=== PATIENT | female | born 2000 | race Hispanic/Latino ===

== ENCOUNTER 2024-03-14 10:48 | Emergency (ER) | payer SELFPAY ==
[2024-03-14] MEDS ORDERED: ONDANSETRON 4 MG/2 ML VIAL ONE (11:43)
[2024-03-14 12:12] LABS: Absolute Basophils 0.1 K/uL (0-0.5); Absolute Lymphocytes (CBC) 1.9 K/uL (0.7-4.9); Absolute Monocytes 0.6 K/uL (0.1-1.3); Absolute Neutrophil 7.9 K/uL (1.8-8.0); Basophils % 0.5 % (0-1.3); Eosinophils % 0.3 % (0-4.4); Hematocrit 36.9 % (36.0-45.0); Hemoglobin 12.9 g/dL (12.0-15.0); Lymphocytes % 18.3 % (15.3-44.8); MCH 30.1 pg (27.0-35.0); MCHC 35.1 g/dL (32.0-36.0); MCV 85.8 fL (80-100); MPV 10.3 fL (7.6-11.3); Monocytes % 5.3 % (3.3-12.3); Neutrophils % 75.6 % (41.7-73.7); Platelets 253 thou/uL (152-406); RBC Red Blood Cell Count 4.29 M/uL (3.86-4.86); Red Cell Distribution Width 13.1 % (12.1-15.2)
[2024-03-14 12:21] LABS: Albumin 3.6 g/dL (3.4-5.0); Albumin/Globulin Ratio 0.9 (1.1-1.8); Anion Gap 9.5 mEq/L (5.0-15.0); Bilirubin Total 0.6 mg/dL (0.2-1.0); Globulin 4.2 g/dL (2.3-3.5); Potassium 3.5 mEq/L (3.5-5.1); Protein, Total 7.8 g/dL (6.4-8.2)
[2024-03-14 13:16] LABS: Specific Gravity 1.026 (1.005-1.030); Sqamous Epithelial <5 /HPF (None Seen); Urine Bacteria >50 /HPF (<20); Urine Bilirubin NEGATIVE (Negative); Urine Blood Negative (Negative); Urine Clarity Extremely Turbid (Clear); Urine Color Yellow (Yellow); Urine Culture Reflex Order NOT NEEDED; Urine Glucose NEGATIVE (Negative); Urine Ketones 4+ (Over) (Negative); Urine Micro Reflex YN NO BILL MICROSCOPIC; Urine Mucus 2+ /HPF (None Seen); Urine Nitrite 1+ (Negative); Urine Protein TRACE (Negative); Urine Urobilinogen Normal (Normal); Urine WBC <5 /HPF (<5); Urine pH 6.5 (5.0-7.0)
--- NOTE | 2024-03-14 13:27 | EDPHYS ---
Physician Documentation [facility] [place] Name: Coco Barajas Age: 23 yrs Sex: Female : 2000 Arrival Date: 03/14/2024 Time: 10:48 Bed 4 Private MD: ED Physician Karel Amin HPI: 03/14 19:19 This 23 yrs old Female presents to ER via Wheelchair with complaints of rt Vomiting - Prg 12WKS. 19:19 Patient is a G1, P0 currently at 12 weeks gestation who presents to the ED with nausea, rt vomiting, inability to take anything down by mouth since yesterday. Denies any abdominal pain. Denies other acute complaints at this time, symptoms are moderate in severity, no other aggravating or alleviating factors.. 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 - Infectious Disease History:: Denies. - Social history:: Smoking status: Patient denies any tobacco usage or history of. - Family history:: not pertinent. ROS: 19:19 Constitutional: Negative for fever, chills, and weight loss, Cardiovascular: Negative rt for chest pain, palpitations, and edema, Respiratory: Negative for shortness of breath, cough, wheezing, and pleuritic chest pain, MS/Extremity: Negative for injury and deformity, Skin: Negative for injury, rash, and discoloration, Neuro: Negative for headache, weakness, numbness, tingling, and seizure, 19:19 Abdomen/GI: Positive for nausea and vomiting, Negative for abdominal pain, Exam: 19:19 Constitutional: This is a well developed, well nourished patient who is awake, alert, rt and in no acute distress. Head/Face: Normocephalic, atraumatic. Chest/axilla: Normal chest wall appearance and motion. Nontender with no deformity. No lesions are appreciated. Cardiovascular: Regular rate and rhythm with a normal S1 and S2. No gallops, murmurs, or rubs. Normal PMI, no JVD. No pulse deficits. Respiratory: Lungs have equal breath sounds bilaterally, clear to auscultation and percussion. No rales, rhonchi or wheezes noted. No increased work of breathing, no retractions or nasal flaring. Abdomen/GI: Soft, non-tender, with normal bowel sounds. No distension or tympany. No guarding or rebound. No evidence of tenderness throughout. Skin: Warm, dry with normal turgor. Normal color with no rashes, no lesions, and no evidence of cellulitis. MS/ Extremity: Pulses equal, no cyanosis. Neurovascular intact. Full, normal range of motion. Neuro: Awake and alert, GCS 15, oriented to person, place, time, and situation. Cranial nerves II-XII grossly intact. Motor strength 5/5 in all extremities. Sensory grossly intact. Cerebellar exam normal. Normal gait. Vital Signs: 10:59 BP 99 / 60; Pulse 106; Resp 17; Temp 97.2; Pulse Ox 100% ; Pain 0/10; ll1 11:58 BP 116 / 90; Pulse 83; Resp 16 S; Pulse Ox 100% on R/A; kc6 13:10 BP 112 / 63; Pulse 75; Resp 16 S; Pulse Ox 100% on R/A; kc6 10:59 Pain Scale: Adult ll1 MDM: 11:06 Patient medically screened. rt 19:19 Differential diagnosis: Hyperemesis gravidarum, UTI. Data reviewed: vital signs, nurses rt notes, lab test result(s). Consideration of Admission/Observation Escalation of care including admission/observation considered. Patient is p.o. tolerant following treatment in the ED, electrolytes are stable, no indications for admission, patient stable for outpatient care.. I considered the following discharge prescriptions or medication management in the emergency department Medications were administered in the Emergency Department. See MAR. Counseling: I had a detailed discussion with the patient and/or guardian regarding the historical points, exam findings, and any diagnostic results supporting the discharge/admit diagnosis, lab results, the need for outpatient follow up. Response to treatment: the patient's symptoms have markedly improved after treatment. 03/14 11:12 Order name: CBC with Diff; Complete Time: 13:04 rt 03/14 11:12 Order name: CMP; Complete Time: 13:04 rt 03/14 11:12 Order name: UAM; Complete Time: 13:17 rt Administered Medications: 11:57 Drug: NS 0.9% IV 1000 ml IV at 1 bolus Per protocol; 1000 mL bolus Route: IV; Rate: 1 kc6 bolus; Site: right antecubital; 13:09 Follow up: Response: No adverse reaction; IV Status: Completed infusion; IV Intake: kc6 1000ml 11:57 Drug: Ondansetron IVP 4 mg IVP once; over 2 minutes Route: IVP; Site: right antecubital;kc6 12:34 Follow up: Response: No adverse reaction kc6 Disposition Summary: 03/14/24 13:25 Discharge Ordered Notes: Location: Home rt Problem: new rt Symptoms: have improved rt Condition: Stable rt Diagnosis - Mild hyperemesis gravidarum rt - UTI/ Urinary tract infection, site not specified rt Followup: rt - With: Private Physician - When: 2 - 3 days - Reason: Discharge Instructions: - Discharge Summary Sheet rt - Hyperemesis Gravidarum rt - and Urinary Tract Infection rt Forms: - Medication Reconciliation Form rt - Antibiotic Education rt - Prescription Opioid Use rt - Patient Portal Instructions rt - Leadership Thank You Letter rt Prescriptions: - ondansetron 4 mg Oral Tablet,disintegrating - take 1 tablet ORAL route every 6 hours as needed for nausea; 18 tablet; rt Refills: 0, Product Selection Permitted - Cephalexin 500 mg Oral capsule - take 1 capsule ORAL route every 8 hours for 7 days; 21 capsule; Refills: 0, rt Product Selection Permitted Signatures: Dispatcher [employer] Nestor Covarrubias RN RN ll1 Rebecca Austin RN RN kc6 Karel Amin MD MD rt
--- NOTE | 2024-03-14 13:27 | ER ---
Nurse's Notes [facility] [place] Name: Coco Barajas Age: 23 yrs Sex: Female : 2000 Arrival Date: 03/14/2024 Time: 10:48 Bed 4 Private MD: Diagnosis: Mild hyperemesis gravidarum;UTI/ Urinary tract infection, site not specified Presentation: 03/14 10:59 Chief complaint: Patient states: 12 weeks . N/V for 2 weeks off/on, started ll1 again this weekend. + dizzy and weak. Coronavirus screen: Client denies travel out of the [place] in the last 14 days. At this time, the client does not indicate any symptoms associated with coronavirus-19. Ebola Screen: Patient denies travel to an Ebola-affected area in the 21 days before illness onset. Initial Sepsis Screen: Does the patient meet any 2 criteria? No. Patient's initial sepsis screen is negative. Does the patient have a suspected source of infection? No. Patient's initial sepsis screen is negative. Risk Assessment: Do you want to hurt yourself or someone else? Patient reports no desire to harm self or others. Onset of symptoms was March 04, 2024. 10:59 Method Of Arrival: Wheelchair ll1 10:59 Acuity: KANDICE 3 ll1 Triage Assessment: 11:03 General: Appears uncomfortable, ill, Behavior is calm, cooperative, appropriate for ll1 age. General: Reports approximately 12 weeks . Pain: Complains of pain in head Quality of pain is described as aching. Neuro: Reports headache weakness. GI: Reports nausea, vomiting. 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 - Infectious Disease History:: Denies. - Social history:: Smoking status: Patient denies any tobacco usage or history of. - Family history:: not pertinent. Screenin:57 [facility] ED Fall Risk Assessment (Adult) History of falling in the last 3 months, kc6 including since admission No falls in past 3 months (0 pts) Confusion or Disorientation No (0 pts) Intoxicated or Sedated No (0 pts) Impaired Gait No (0 pts) Mobility Assist Device Used No (0 pt) Altered Elimination No (0 pt) Score/Fall Risk Level 0 - 2 = Low Risk. Abuse screen: Denies threats or abuse. Denies injuries from another. Nutritional screening: No deficits noted. Tuberculosis screening: No symptoms or risk factors identified. Assessment: 11:58 General: Appears in no apparent distress. comfortable, well groomed, well developed, kc6 Behavior is calm, cooperative, appropriate for age. Pain: Denies pain. Neuro: Level of Consciousness is awake, alert, obeys commands, Oriented to person, place, time, situation, Appropriate for age. Cardiovascular: Capillary refill < 3 seconds. Respiratory: Airway is patent Trachea midline Respiratory effort is even, unlabored, Respiratory pattern is regular, symmetrical. GI: Abdomen is flat, non-distended, Bowel sounds present X 4 quads. Abd is soft and non tender X 4 quads. Reports intolerance of fluids, intolerance of food, nausea, vomiting, Patient currently denies abdominal pain, diarrhea. : No signs and/or symptoms were reported regarding the genitourinary system. Denies vaginal bleeding. EENT: No signs and/or symptoms were reported regarding the EENT system. Derm: No signs and/or symptoms reported regarding the dermatologic system. Skin is intact, is healthy with good turgor, Skin is pink, warm \T\ dry. Musculoskeletal: No signs and/or symptoms reported regarding the musculoskeletal system. Circulation, motion, and sensation intact. Capillary refill < 3 seconds, Range of motion: intact in all extremities. 13:10 Reassessment: Patient appears in no apparent distress at this time. No changes from kc6 previously documented assessment. Patient and/or family updated on plan of care and expected duration. Pain level reassessed. Patient is alert, oriented x 3, equal unlabored respirations, skin warm/dry/pink. Patient states feeling better. Patient states symptoms have improved. Vital Signs: 10:59 BP 99 / 60; Pulse 106; Resp 17; Temp 97.2; Pulse Ox 100% ; Pain 0/10; ll1 11:58 BP 116 / 90; Pulse 83; Resp 16 S; Pulse Ox 100% on R/A; kc6 13:10 BP 112 / 63; Pulse 75; Resp 16 S; Pulse Ox 100% on R/A; kc6 10:59 Pain Scale: Adult ll1 ED Course: 10:52 Patient arrived in ED. mg5 11:01 Triage completed. ll1 11:03 Arm band placed on. ll1 11:05 Karel Amin MD is Attending Physician. rt 11:38 Patient placed in an exam room, on a stretcher. ll1 11:57 Patient has correct armband on for positive identification. Bed in low position. Call kc6 light in reach. Side rails up X 1. Adult w/ patient. Pulse ox on. NIBP on. Pillow given. 11:57 Inserted saline lock: 20 gauge in right antecubital area, using aseptic technique. kc6 Blood collected. 12:34 Rebecca Austin, RN is Primary Nurse. kc6 13:09 [facility] Sent. kc6 13:20 Diet: Patient given water. kc6 13:42 Provided Education on: discharge education. ap3 13:42 No provider procedures requiring assistance completed. IV discontinued, intact, ap3 bleeding controlled, No redness/swelling at site. Pressure dressing applied. Administered Medications: 11:57 Drug: NS 0.9% IV 1000 ml IV at 1 bolus Per protocol; 1000 mL bolus Route: IV; Rate: 1 kc6 bolus; Site: right antecubital; 13:09 Follow up: Response: No adverse reaction; IV Status: Completed infusion; IV Intake: kc6 1000ml 11:57 Drug: Ondansetron IVP 4 mg IVP once; over 2 minutes Route: IVP; Site: right antecubital;kc6 12:34 Follow up: Response: No adverse reaction kc6 Medication: 13:42 VIS not applicable for this client. ap3 Intake: 13:09 IV: 1000ml; Total: 1000ml. kc6 Outcome: 13:25 Discharge ordered by . rt 13:42 Discharged to home ambulatory, with friend, ap3 13:42 Condition: good 13:42 Discharge instructions given to patient, Instructed on discharge instructions, follow up and referral plans. medication usage, Demonstrated understanding of instructions, follow-up care, medications, Prescriptions given X 2, 13:43 Patient left the ED. ap3 Signatures: Lucia Li RN RN ap3 Nestor Millan RN RN ll1 Rebecca Austin RN RN kc6 Karel Amin MD MD rt Cristal Noble mg5
[2024-03-14 18:07] VITALS: BP 112/63; TEMP 97.2; O2SAT 100
== END 2024-03-14 13:43 | disposition home or self-care (01) ==
LOC: ER 10:48
DX: O21.0 Mild hyperemesis gravidarum (principal); O23.41 Unspecified infection of urinary tract in pregnancy, first trimester; N39.0 Urinary tract infection, site not specified; Z3A.12 12 weeks gestation of pregnancy
CPT/HCPCS: 36415; 80053; 81001; 85025; 96361; 96374; 99284; J2405

== ENCOUNTER 2025-02-12 08:38 | Emergency (ER) | payer OTHER, SELFPAY ==
--- OUTSIDE RECORDS SUMMARY | 2025-02-12 08:45 | XMS REPORT | Continuity of Care Document ---
Author Name Unknown Address [address] [facility] [address] [place] [address] Organization [facility] [place] Address [address] [facility] [address] [place] [address] Care Team Providers Care Content Coordinator Name Role Phone Pavel Edmond Primary Care Physician Pavel Edmond Attending Clinician Unavail able Pavel Edmond Admitting Clinician Unavail able Payers Payer Name Policy Type Policy Number Effective Date Expirati on Date Source Allergies, Adverse Reactions, Alerts Allergy Name Allergy Type Status Severity Reaction(s) Onset Date Inactive Date Treating Clinician Comments Source No Known Allergie s DA Active U 2023-09 00:00: 00 [facility] Medications Ordered Medication Name Filled Medication Name Start Date Stop Date Current Medication? Ordering Clinician Indication Dosage Frequency Signature (SIG) Comments Components Source Macrobid 100 mg capsule 2023-09 2- 00:00: 00 Yes 1mg Roger Strong Macrobid 100 mg capsule 2023-09 1-08 00:00: 00 Yes 1mg Roger Strong fluconazole 150 mg tablet 2023-09 0-17 00:00: 00 Yes mg Roger Strong Miconazole- 7 100 mg vaginal suppository 2023-09 0-17 00:00: 00 Yes 1mg Roger Strong fluconazole 150 mg tablet -18 00:00: 00 Yes mg Roger Strong amoxicillin 875 mg-potassiu m clavulanate 125 mg tablet 0 18 00:00: 00 Yes 1mg Roger Strong Miconazole- 7 100 mg vaginal suppository 0 18 00:00: 00 Yes 1mg Roger Strong amoxicillin 875 mg-potassiu m clavulanate 125 mg tablet 0 8-30 00:00: 00 Yes 1mg Roger Strong Miconazole- 7 100 mg vaginal suppository 0 8- 00:00: 00 Yes 1mg Roger Strong Macrobid 100 mg capsule 0 8- 00:00: 00 Yes 1mg Roger Strong amoxicillin 500 mg-potassiu m clavulanate 125 mg tablet 0 8 00:00: 00 Yes 1mg Roger Strong Miconazole- 7 100 mg vaginal suppository 0 - 00:00: 00 Yes 1mg Roger Strong Macrobid 100 mg capsule 0 03-22 00:00: 00 Yes 1mg Roger Strong ondansetron 4 mg disintegrat ing tablet 6- 00:00: 00 Yes 12mg Roger Strong Vital Signs Vital Name Observation Time Observation Value Comments S amara BP Systolic 2024-08-27 13:53:00 120 mm[Hg] Chris Strong BP Diastolic 2024-08-27 13:53:00 72 mm[Hg] Lazaro phen Karson Strong Weight Measured 2024-08-27 13:53:00 202.80 pounds Roger Strong Height Measured 2024-08-27 13:53:00 55.30 inches Roger Strong Body Temperature 2024-08-27 13:53:00 98.00 degrees Roger Strong Heart Rate 2024-08-27 13:53:00 95.00 /min Carie Strong Respiratory Rate 2024-08-27 13:53:00 Roger Strong BP Systolic 2024-08-06 10:56:00 114 mm[Hg] Chris Strong BP Diastolic 2024-08-06 10:56:00 71 mm[Hg] Lazaro phen Karson Strong Weight Measured 2024-08-06 10:56:00 195.20 pounds Roger Strong Height Measured 2024-08-06 10:56:00 55.30 inches Roger F Tae Body Temperature 2024-08-06 10:56:00 98.70 degrees Roger F Tae Heart Rate 2024-08-06 10:56:00 88.00 /min Carie en F Tae Respiratory Rate 2024-08-06 10:56:00 Roger F Tae BP Systolic 2024-07-08 16:14:00 101 mm[Hg] Step hen F Tae BP Diastolic 2024-07-08 16:14:00 64 mm[Hg] Lazaro phen F Tae Weight Measured 2024-07-08 16:14:00 188.00 pounds Roger F Tae Height Measured 2024-07-08 16:14:00 55.30 inches Roger F Tae Body Temperature 2024-07-08 16:14:00 97.80 degrees Roger F Tae Heart Rate 2024-07-08 16:14:00 84.00 /min Carie en F Tae Respiratory Rate 2024-07-08 16:14:00 18.00 /min Roger F Tae BP Systolic 2024-06-09 16:23:00 108 mm[Hg] Step hen F Tae BP Diastolic 2024-06-09 16:23:00 85 mm[Hg] Lazaro phen F Tae Weight Measured 2024-06-09 16:23:00 180.40 pounds Roger F Tae Height Measured 2024-06-09 16:23:00 55.30 inches Roger F Tae Body Temperature 2024-06-09 16:23:00 97.40 degrees Roger F Tae Heart Rate 2024-06-09 16:23:00 89.00 /min Carie en F Tae Respiratory Rate 2024-06-09 16:23:00 18.00 /min Roger F Tae BP Systolic 2024-05-17 08:30:00 108 mm[Hg] Step hen F Tae BP Diastolic 2024-05-17 08:30:00 73 mm[Hg] Lazaro phen F Tae Weight Measured 2024-05-17 08:30:00 173.80 pounds Roger F Tae Height Measured 2024-05-17 08:30:00 55.30 inches Roger F Tae Body Temperature 2024-05-17 08:30:00 98.20 degrees Roger F Tae Heart Rate 2024-05-17 08:30:00 83.00 /min Carie en F Tae Respiratory Rate 2024-05-17 08:30:00 19.00 /min Roger F Tae BP Systolic 2024-04-19 10:43:00 116 mm[Hg] Step hen F Tae BP Diastolic 2024-04-19 10:43:00 74 mm[Hg] Lazaro phen F Tae Weight Measured 2024-04-19 10:43:00 166.00 pounds Roger F Tae Height Measured 2024-04-19 10:43:00 55.30 inches Roger F Tae Body Temperature 2024-04-19 10:43:00 98.40 degrees Roger F Tae Heart Rate 2024-04-19 10:43:00 85.00 /min Carie en F Tae Respiratory Rate 2024-04-19 10:43:00 16.00 /min Roger F Tae BP Systolic 2024-03-16 15:23:00 106 mm[Hg] Step hen F Tae BP Diastolic 2024-03-16 15:23:00 72 mm[Hg] Lazaro phen F Tae Weight Measured 2024-03-16 15:23:00 165.00 pounds Roger F Tae Height Measured 2024-03-16 15:23:00 55.30 inches Roger F Tae Body Temperature 2024-03-16 15:23:00 98.20 degrees Roger F Tae Heart Rate 2024-03-16 15:23:00 97.00 /min Carie en F Tae Respiratory Rate 2024-03-16 15:23:00 18.00 /min Roger F Tae BP Systolic 2024-03-11 09:32:00 113 mm[Hg] Step hen F Tae BP Diastolic 2024-03-11 09:32:00 98 mm[Hg] Lazaro phen F Tae Weight Measured 2024-03-11 09:32:00 162.40 pounds Roger F Tae Height Measured 2024-03-11 09:32:00 55.30 inches Roger F Tae Body Temperature 2024-03-11 09:32:00 97.50 degrees Roger F Tae Heart Rate 2024-03-11 09:32:00 118.00 /min Step hen F Tae Respiratory Rate 2024-03-11 09:32:00 Roger F Tae Procedures Procedure Date / Time Performed Performing Clinicia n Source EXTRACTION OF PRODUCTS OF CONCEPTION, LOW, OPEN AP 2024-09-14 00:00:00 [facility] Encounters Start Date/Time End Date/Time Encounter Type Admission Type Attending [facility] Facility Care Department Encounter ID Source 2024-11-11 15:45:48 2024-11-11 15:45:48 Outpatient SFA SFA [id number] Roger Strong 2024-11-09 17:03:54 2024-11-09 17:03:54 Outpatient SFA SFA [id number] Roger Strong 2024-09-14 04:48:00 2024-09-17 10:57:00 Inpatient UR [facility]raPavel [facility] OBPP [id number] [facility] 2024-08-27 00:00:00 2024-08-27 00:00:00 Outpatient Visit SFA [id number] Roger Strong 2024-08-06 10:46:18 2024-08-06 10:46:18 Outpatient SFA SFA [id number] Roger Strong 2024-08-06 00:00:00 2024-08-06 00:00:00 Outpatient Visit SFA [id number] Roger Strong 2024-07-23 10:27:13 2024-07-23 10:27:13 Outpatient SFA SFA [id number] Roger Strong 2024-07-23 00:00:00 2024-07-23 00:00:00 Outpatient Visit SFA [id number] Roger Strong 2024-07-08 15:58:21 2024-07-08 15:58:21 Outpatient SFA SFA [id number] Roger Strong 2024-07-08 00:00:00 2024-07-08 00:00:00 Outpatient Visit SFA [id number] Roger Strong 2024-06-15 09:34:05 2024-06-15 09:34:05 Outpatient SFA SFA [id number] Roger Strong 2024-06-09 16:16:52 2024-06-09 16:16:52 Outpatient SFA SFA [id number] Roger Strong 2024-05-17 08:25:09 2024-05-17 08:25:09 Outpatient SFA SFA [id number] Roger Strong 2024-05-17 00:00:00 2024-05-17 00:00:00 Outpatient Visit SFA [id number] Roger Strong 2024-04-29 10:14:25 2024-04-29 10:14:25 Outpatient SFA SFA [id number] Roger Strong 2024-04-19 10:13:52 2024-04-19 10:13:52 Outpatient SFA SFA [id number] Roger Strong 2024-04-19 00:00:00 2024-04-19 00:00:00 Outpatient Visit SFA [id number] Roger Strong 2024-03-18 12:00:50 2024-03-18 12:00:50 Outpatient SFA SFA [id number] Roger Strong 2024-03-16 15:20:59 2024-03-16 15:20:59 Outpatient SFA SFA [id number] Roger Strong 2024-03-16 00:00:00 2024-03-16 00:00:00 Outpatient Visit SFA [id number] Roger Strong 2024-03-11 09:24:43 2024-03-11 09:24:43 Outpatient SFA SFA [id number] Roger Strong 2024-03-11 00:00:00 2024-03-11 00:00:00 Outpatient Visit SFA [id number] Roger Strong 2024-02-17 08:17:04 2024-02-17 08:17:04 Outpatient [facility] [id number] Roger Strong 2024-02-11 08:46:07 2024-02-11 08:46:07 Outpatient [facility] [id number] Roger Strong Results Test Description Test Time Test Comments Results Result Co mments Source CBC W/AUTO [id number] 06:29:00* Test Item Value Reference Range Interpretation Comme nts WHITE BLOOD CELL (test code = WBC) 11.0 x10 3/uL 4.5-11.0 N RED BLOOD CELL (test code = RBC) 3.10 x10 6/uL 3.54-5.02 L HEMOGLOBIN (test code = HGB) 7.6 g/dL 11.0-15.0 L HEMATOCRIT (test code = HCT) 25.0 % 33.0-45.0 L MEAN CELL VOLUME (test code = MCV) 80.6 fL 81.0-99.0 L MEAN CELL HGB (test code = MCH) 24.5 pg 27.0-33.0 L MEAN CELL HGB CONCETRATION (test code = MCHC) 30.4 g/dL 33.0-37.0 L RED CELL DISTRIBUTION WIDTH CV (test code = RDW) 15.9 % 11.5-14.5 H RED CELL DISTRIBUTION WIDTH SD (test code = RDW-SD) 45.1 fL 37.0-54.0 N PLATELET COUNT (test code = PLT) 162 x10 3/uL 150-400 N MEAN PLATELET VOLUME (test c ode = MPV) 13.3 fL 7.0-9.0 H NEUTROPHIL % (test code = NT%) 71.2 % 56.0-77.0 N IMMATURE GRANULOCYTE % (test code = IG%) 0.8 % 0.0-2.0 N LYMPHOCYTE % (test code = LY%) 20.3 % 14.0-32.0 N MONOCYTE % (test code = MO%) 6.8 % 4.8-9.0 N EOSINOPHIL % (test code = EO%) 0.5 % 0.3-3.7 N BASOPHIL % (test code = BA%) 0.4 % 0.0-2.0 N NUCLEATED RBC % (test code = NRBC%) 0.0 % 0-0 N NEUTROPHIL # (test code = NT#) 7.80 x10 3/uL 2.0-7.6 H IMMATURE GRANULOCYTE # (test code = IG#) 0.09 x10 3/uL 0.00-0.03 H LYMPHOCYTE # (test code = LY#) 2.23 x10 3/uL 1.0-3.8 N MONOCYTE # (test code = MO#) 0.75 x10 3/uL 0.1-0.8 N EOSINOPHIL # (test code = EO#) 0.06 x10 3/uL 0.0-0.2 N BASOPHIL # (test code = BA#) 0.04 x10 3/uL 0.0-0.2 N NUCLEATED RBC # (test code = NRBC#) 0.00 x10 3/uL 0.0-0.1 N AB HIV 1 11:44:00* Test Item Value Reference Range Interpretation Comme nts AB HIV 1 2 (test code = AZT46SS) Nonreactive Nonreactive RAPID PLASMA [id number] 11:44:00* Test Item Value Reference Range Interpretation Comme nts RAPID PLASMA REAGIN (test co de = RPR) NONREACTIVE NONREACTIVE AG HEPATITIS B [id number] 11:44:00* Test Item Value Reference Range Interpretation Comme nts AG HEPATITIS B SURFACE (test code = HBSAG) NON REACTIVE INDEX NonReactive CBC W/AUTO [id number] 16:10:00* Test Item Value Reference Range Interpretation Comme nts WHITE BLOOD CELL (test code = WBC) 9.3 x10 3/uL 4.5-11.0 N RED BLOOD CELL (test code = RBC) 3.87 x10 6/uL 3.54-5.02 N HEMOGLOBIN (test code = HGB) 9.4 g/dL 11.0-15.0 L HEMATOCRIT (test code = HCT) 30.0 % 33.0-45.0 L MEAN CELL VOLUME (test code = MCV) 77.5 fL 81.0-99.0 L MEAN CELL HGB (test code = MCH) 24.3 pg 27.0-33.0 L MEAN CELL HGB CONCETRATION (test code = MCHC) 31.3 g/dL 33.0-37.0 L RED CELL DISTRIBUTION WIDTH CV (test code = RDW) 15.7 % 11.5-14.5 H RED CELL DISTRIBUTION WIDTH SD (test code = RDW-SD) 42.5 fL 37.0-54.0 N PLATELET COUNT (test code = PLT) 242 x10 3/uL 150-400 N MEAN PLATELET VOLUME (test c ode = MPV) 13.2 fL 7.0-9.0 H NEUTROPHIL % (test code = NT%) 69.3 % 56.0-77.0 N IMMATURE GRANULOCYTE % (test code = IG%) 1.0 % 0.0-2.0 N LYMPHOCYTE % (test code = LY%) 20.7 % 14.0-32.0 N MONOCYTE % (test code = MO%) 7.7 % 4.8-9.0 N EOSINOPHIL % (test code = EO%) 0.8 % 0.3-3.7 N BASOPHIL % (test code = BA%) 0.5 % 0.0-2.0 N NUCLEATED RBC % (test code = NRBC%) 0.2 % 0-0 H NEUTROPHIL # (test code = NT#) 6.46 x10 3/uL 2.0-7.6 N IMMATURE GRANULOCYTE # (test code = IG#) 0.09 x10 3/uL 0.00-0.03 H LYMPHOCYTE # (test code = LY#) 1.93 x10 3/uL 1.0-3.8 N MONOCYTE # (test code = MO#) 0.72 x10 3/uL 0.1-0.8 N EOSINOPHIL # (test code = EO#) 0.07 x10 3/uL 0.0-0.2 N BASOPHIL # (test code = BA#) 0.05 x10 3/uL 0.0-0.2 N NUCLEATED RBC # (test code = NRBC#) 0.02 x10 3/uL 0.0-0.1 N PLT [id number] 16:10:00* Test Item Value Reference Range Interpretation Comme nts PLATELET ESTIMATE (test code = PLTEST) x10 3/uL 150-400 ADEQUATE PLATELET MORPHOLOGY (test code = PLTMORPH) LARGE PLATELETS [id number] 15:46:00* Test Item Value Reference Range Interpretation Comme nts CREATININE (test code = CREAT) 0.7 mg/dL 0.6-1.3 N GROUP B STREP SCREEN BY [id number] 15:56:34* Test Item Value Reference Range Interpretation Comments GROUP B STREP, PCR (test code = 59502) NOT DETECTED NOT DETECTED SOURCE (test code = 25964) vaginal/rectum This test was de veloped and its performance characteristicsdetermined by [facility] It has not beencleared or approved by the U.S. Food and Drug Administration (FDA).The FDA has determined that such clearance or approval is notrequired for clinical use of this test. [facility] is regulated under theClinical Laboratory Improvement Amendments of 1988 (CLIA) as qualifiedto perform high complexity clinical testing. UNLESS OTHERWISE INDICATED, ALL TESTING PERFORMED AT [facility] [address] [place] [address] TYPEWRITER TESTER: JONATHAN TREJO M.D. CLIA NUMBER [id number] [facility] [place]. [id number] GROUP B STREP SCREEN BY [id number] 00:00:00* Test Item Value Reference Range Interpretation Comme nts GROUP B STREP, PCR (test cod e = 14310) NOT DETECTED SOURCE (test code = 89666) vaginal/rectum Roger F AustinGROUP B STREP SCREEN BY [id number] 00:00:00* Test Item Value Reference Range Interpretation Comme nts GROUP B STREP, PCR (test cod e = 98489) NOT DETECTED SOURCE (test code = 95515) vaginal/rectum Roger F AustinGROUP B STREP SCREEN BY [id number] 00:00:00* Test Item Value Reference Range Interpretation Comme nts GROUP B STREP, PCR (test cod e = 66796) NOT DETECTED SOURCE (test code = 69390) vaginal/rectum Roger StrongCULTXOCHITL, [id number] 08:56:30SPECIMEN NUMBER: [id number] CULTURE, URINE SPECIMEN NUMBER: [id number] SOURCE: URINE REPORT STATUS: FINAL FINAL REPORT: 08/29/2024 <10,000 CFU/ML UROGENITAL RHONDA PRESENT NO COMMON PATHOGENSCULTURE, [id number] 00:00:00* Test Item Value Reference Range Interpretation Comme nts CULTURE, URINE (test code = 78489) SPECIMEN NUMBER: [id number] Roger GuerreroLTURE, [id number] 00:00:00* Test Item Value Reference Range Interpretation Comme nts CULTURE, URINE (test code = 30853) SPECIMEN NUMBER: [id number] Roger GuerreroLTXOCHITL, [id number] 00:00:00* Test Item Value Reference Range Interpretation Comme nts CULTURE, URINE (test code = 95898) SPECIMEN NUMBER: [id number] Roger StrongDRUG ABUSE SCREEN 10 REFLEX [id number] 04:46:43* Test Item Value Reference Range Interpretation Comme nts AMPHETAMINES (test code = 3201) NEGATIVE NEGATIVE BARBITURATES (test code = 3202) NEGATIVE NEGATIVE BENZODIAZEPINES (test code = 3203) NEGATIVE NEGATIVE CANNABINOIDS (THC) (test code = 3204) NEGATIVE NEGATIVE COCAINE METABOLITES (test code = 3205) NEGATIVE NEGATIVE OPIATE METABOLITES (test code = 3209) NEGATIVE NEGATIVE OXYCODONE (test code = 68138) NEGATIVE NEGATIVE PHENCYCLIDINE (PCP) (test code = 3210) NEGATIVE NEGATIVE METHADONE (test code = 3207) NEGATIVE NEGATIVE BUPRENORPHINE (test code = 98670) NEGATIVE NEGATIVE SOURCE (test code = 065318) URINE PLEASE NOTE: NEW METHODOLOGY AND SCREENING CUT OFFS SEE BELOW FOR THRESHOLDS AND IMPORTANT METHOD NOTES ANALYTE SCREENING CUTOFF UNITS AMPHETAMINES 500 NG/ML BARBITURATES 200 NG/ML BENZODIAZEPINES 200 NG/ML CANNABINOIDS (THC) 20 NG/ML COCAINE METABOLITES 150 NG/ML OPIATE METABOLITES 300 NG/ML OXYCODONE 100 NG/ML PHENCYCLIDINE (PCP) 25 NG/ML METHADONE 300 NG/ML BUPRENORPHINE 5 NG/ML NOTE: Specimens reported as PRESUMPTIVE POSITIVE have not beensubjected to confirmation testing. NOTE: Screening methodology is KIMS/HEIA. NOTE: Screening methodology is qualitative Enzyme Immunoassay.The screening method may be less sensitive for certain medicationsincluding clonazepam and lorazepam in the benzodiazepine assay andtramadol in the opiate assay, amongst others. Patient compliance,hydration status, timing and dose of medications, drug absorption andspecimen quality may affect screening assay. False positive screenresults may occur due to cross-reactivity. For clinicaldiscrepancies, consider directed testing for specific compounds orcontact the laboratory within specimen stability to forward forconfirmatory testing. This test is specified for medical purposesonly. It is not valid for forensic use. CBC W/AUTO DIFF WITH [id number] 02:31:02* Test Item Value Reference Range Interpretation Comme nts WBC (test code = 1001) 8.2 K/UL 3.5-11.0 RBC (test code = 1002) 3.64 M/UL 3.80-5.40 L HEMOGLOBIN (test code = 1003) 9.3 G/DL 11.5-15.5 L HEMATOCRIT (test code = 1004) 29.0 % 34.0-45.0 L MCV (test code = 1005) 79.7 fL 80.0-99.0 L MCH (test code = 1006) 25.5 PG 25.0-33.0 MCHC (test code = 1007) 32.1 G/DL 31.0-36.0 RDW (test code = 1038) 14.1 % 11.5-15.0 NEUTROPHILS (test code = 1008) 65.2 % LYMPHOCYTES (test code = 1010) 24.5 % MONOCYTES (test code = 1011) 7.7 % EOSINOPHILS (test code = 1012) 1.2 % BASOPHILS (test code = 1013) 0.5 % IMMATURE GRANULOCYTES (test code = 1036) 0.9 % NUCLEATED RBCS (test code = 1065) 0.0 /100 WBC'S See_Comment [Automated messa ge] The system which generated this result transmitted reference range: 0.0. The reference range was not used to interpret this result as normal/abnormal. PLATELET COUNT (test code = 1015) 249 K/UL 130-400 ABSOLUTE NEUTROPHILS (test code = 1066) 5.33 K/UL 1.50-7.50 ABSOLUTE LYMPHOCYTES (test code = 1067) 2.00 K/UL 1.00-4.00 ABSOLUTE MONOCYTES (test code = 1068) 0.63 K/UL 0.20-1.00 ABSOLUTE EOSINOPHILS (test code = 1040) 0.10 K/UL 0.00-0.50 ABSOLUTE BASOPHILS (test code = 1069) 0.04 K/UL 0.00-0.20 ABS IMMATURE GRANULOCYTES (test code = 1020) 0.07 K/UL 0.00-0.10 ABS NUCLEATED RBCS (test code = 12701) 0.00 K/UL 0.00-0.11 CBC W/AUTO [id number] 00:00:00* Test Item Value Reference Range Interpretation Comme nts WBC (test code = 1001) 8.2 K/UL RBC (test code = 1002) 3.64 M/UL HEMOGLOBIN (test code = 1003) 9.3 G/DL HEMATOCRIT (test code = 1004) 29.0 % MCV (test code = 1005) 79.7 fL MCH (test code = 1006) 25.5 PG MCHC (test code = 1007) 32.1 G/DL RDW (test code = 1038) 14.1 % NEUTROPHILS (test code = 1008) 65.2 % LYMPHOCYTES (test code = 1010) 24.5 % MONOCYTES (test code = 1011) 7.7 % EOSINOPHILS (test code = 1012) 1.2 % BASOPHILS (test code = 1013) 0.5 % IMMATURE GRANULOCYTES (test code = 1036) 0.9 % NUCLEATED RBCS (test code = 1065) 0.0 /100WBC'S PLATELET COUNT (test code = 1015) 249 K/UL ABSOLUTE NEUTROPHILS (test c ode = 1066) 5.33 K/UL ABSOLUTE LYMPHOCYTES (test c ode = 1067) 2.00 K/UL ABSOLUTE MONOCYTES (test cod e = 1068) 0.63 K/UL ABSOLUTE EOSINOPHILS (test c ode = 1040) 0.10 K/UL ABSOLUTE BASOPHILS (test cod e = 1069) 0.04 K/UL ABS IMMATURE GRANULOCYTES (t est code = 1020) 0.07 K/UL ABS NUCLEATED RBCS (test cod e = 82351) 0.00 K/UL Roger StrongDRUG ABUSE PANEL 10 WITH [id number] 00:00:00* Test Item Value Reference Range Interpretation Comme nts AMPHETAMINES (test code = 3201) NEGATIVE BARBITURATES (test code = 3202) NEGATIVE BENZODIAZEPINES (test code = 3203) NEGATIVE CANNABINOIDS (THC) (test cod e = 3204) NEGATIVE COCAINE METABOLITES (test co de = 3205) NEGATIVE OPIATE METABOLITES (test cod e = 3209) NEGATIVE OXYCODONE (test code = 58979) NEGATIVE PHENCYCLIDINE (PCP) (test co de = 3210) NEGATIVE METHADONE (test code = 3207) NEGATIVE BUPRENORPHINE (test code = 42455) NEGATIVE SOURCE (test code = 775839) URINE Roger StrongC W/AUTO [id number] 00:00:00* Test Item Value Reference Range Interpretation Comme nts WBC (test code = 1001) 8.2 K/UL RBC (test code = 1002) 3.64 M/UL HEMOGLOBIN (test code = 1003) 9.3 G/DL HEMATOCRIT (test code = 1004) 29.0 % MCV (test code = 1005) 79.7 fL MCH (test code = 1006) 25.5 PG MCHC (test code = 1007) 32.1 G/DL RDW (test code = 1038) 14.1 % NEUTROPHILS (test code = 1008) 65.2 % LYMPHOCYTES (test code = 1010) 24.5 % MONOCYTES (test code = 1011) 7.7 % EOSINOPHILS (test code = 1012) 1.2 % BASOPHILS (test code = 1013) 0.5 % IMMATURE GRANULOCYTES (test code = 1036) 0.9 % NUCLEATED RBCS (test code = 1065) 0.0 /100WBC'S PLATELET COUNT (test code = 1015) 249 K/UL ABSOLUTE NEUTROPHILS (test c ode = 1066) 5.33 K/UL ABSOLUTE LYMPHOCYTES (test c ode = 1067) 2.00 K/UL ABSOLUTE MONOCYTES (test cod e = 1068) 0.63 K/UL ABSOLUTE EOSINOPHILS (test c ode = 1040) 0.10 K/UL ABSOLUTE BASOPHILS (test cod e = 1069) 0.04 K/UL ABS IMMATURE GRANULOCYTES (t est code = 1020) 0.07 K/UL ABS NUCLEATED RBCS (test cod e = 70417) 0.00 K/UL Roger StrongDRUG ABUSE PANEL 10 WITH [id number] 00:00:00* Test Item Value Reference Range Interpretation Comme nts AMPHETAMINES (test code = 3201) NEGATIVE BARBITURATES (test code = 3202) NEGATIVE BENZODIAZEPINES (test code = 3203) NEGATIVE CANNABINOIDS (THC) (test cod e = 3204) NEGATIVE COCAINE METABOLITES (test co de = 3205) NEGATIVE OPIATE METABOLITES (test cod e = 3209) NEGATIVE OXYCODONE (test code = 71710) NEGATIVE PHENCYCLIDINE (PCP) (test co de = 3210) NEGATIVE METHADONE (test code = 3207) NEGATIVE BUPRENORPHINE (test code = 13525) NEGATIVE SOURCE (test code = 958077) [facility] [id number] 00:00:00* Test Item Value Reference Range Interpretation Comme nts WBC (test code = 1001) 8.2 K/UL RBC (test code = 1002) 3.64 M/UL HEMOGLOBIN (test code = 1003) 9.3 G/DL HEMATOCRIT (test code = 1004) 29.0 % MCV (test code = 1005) 79.7 fL MCH (test code = 1006) 25.5 PG MCHC (test code = 1007) 32.1 G/DL RDW (test code = 1038) 14.1 % NEUTROPHILS (test code = 1008) 65.2 % LYMPHOCYTES (test code = 1010) 24.5 % MONOCYTES (test code = 1011) 7.7 % EOSINOPHILS (test code = 1012) 1.2 % BASOPHILS (test code = 1013) 0.5 % IMMATURE GRANULOCYTES (test code = 1036) 0.9 % NUCLEATED RBCS (test code = 1065) 0.0 /100WBC'S PLATELET COUNT (test code = 1015) 249 K/UL ABSOLUTE NEUTROPHILS (test c ode = 1066) 5.33 K/UL ABSOLUTE LYMPHOCYTES (test c ode = 1067) 2.00 K/UL ABSOLUTE MONOCYTES (test cod e = 1068) 0.63 K/UL ABSOLUTE EOSINOPHILS (test c ode = 1040) 0.10 K/UL ABSOLUTE BASOPHILS (test cod e = 1069) 0.04 K/UL ABS IMMATURE GRANULOCYTES (t est code = 1020) 0.07 K/UL ABS NUCLEATED RBCS (test cod e = 65651) 0.00 K/UL [facility] StrongDRUG ABUSE PANEL 10 WITH [id number] 00:00:00* Test Item Value Reference Range Interpretation Comme nts AMPHETAMINES (test code = 3201) NEGATIVE BARBITURATES (test code = 3202) NEGATIVE BENZODIAZEPINES (test code = 3203) NEGATIVE CANNABINOIDS (THC) (test cod e = 3204) NEGATIVE COCAINE METABOLITES (test co de = 3205) NEGATIVE OPIATE METABOLITES (test cod e = 3209) NEGATIVE OXYCODONE (test code = 16250) NEGATIVE PHENCYCLIDINE (PCP) (test co de = 3210) NEGATIVE METHADONE (test code = 3207) NEGATIVE BUPRENORPHINE (test code = 79700) NEGATIVE SOURCE (test code = 566637) URINE Roger Zavaleta [id number] 13:59:04SPECIMEN NUMBER: [id number] CULTURE, URINE SPECIMEN NUMBER: [id number] SOURCE: URINE REPORT STATUS: FINAL ISOLATE NUMBER 1: ORGANISM: 08/08/2024 >100,000 CFU/ML GRAM NEGATIVE BACILLI IDENTIFICATION:08/09/2024 ESCHERICHIA COLI E. COLI AMOXICILLIN/CA SENSITIVE <=8/4AMPICILLIN RESISTANT >16CEFAZOLIN SENSITIVE <=2CEFTRIAXONE SENSITIVE <=1CIPROFLOXACIN SENSITIVE <=0.25LEVOFLOXACIN SENSITIVE <=0.5NITROFURANTOIN SENSITIVE <=32PIP/TAZOBAC SENSITIVE <=16TOBRAMYCIN SENSITIVE <=4TRIMETH/SULFA SENSITIVE <=2/38 NOTE: NUMBERS DISPLAYED REPRESENT MINIMUM INHIBITORY CONCENTRATION (BRITTANY) WHICH IS EXPRESSED IN MCG/ML. UNLESS OTHERWISE INDICATED, ALL TESTING PERFORMED AT [facility] [address] [place] [address] TYPEWRITER TESTER: JONATHAN TREJO M.D. [place] NUMBER [id number] [facility] [place] [id number], [id number] 00:00:00* Test Item Value Reference Range Interpretation Comme nts CULTURE, URINE (test code = 51193) SPECIMEN NUMBER: [id number] Roger Zavaleta [id number] 00:00:00* Test Item Value Reference Range Interpretation Comme nts CULTURE, URINE (test code = 56093) SPECIMEN NUMBER: [id number] Roger Zavaleta, [id number] 00:00:00* Test Item Value Reference Range Interpretation Comme nts CULTURE, URINE (test code = 16227) SPECIMEN NUMBER: [id number] MARIA ELENA Joseph2024-11-06 12:50:34SPECIMEN NUMBER: [id number] CULTURE, URINE SPECIMEN NUMBER: [id number] SOURCE: URINE REPORT STATUS: FINAL ISOLATE NUMBER 1: ORGANISM: 07/27/2024 >100,000 CFU/ML GRAM NEGATIVE BACILLI IDENTIFICATION:07/28/2024 ESCHERICHIA COLI E. COLI AMOXICILLIN/CA RESISTANT >16/8AMPICILLIN RESISTANT >16CEFAZOLIN SENSITIVE <=2CEFTRIAXONE SENSITIVE <=1CIPROFLOXACIN SENSITIVE <=0.25LEVOFLOXACIN SENSITIVE <=0.5NITROFURANTOIN SENSITIVE <=32PIP/TAZOBAC SENSITIVE <=16TOBRAMYCIN SENSITIVE <=4TRIMETH/SULFA SENSITIVE <=2/38 NOTE: NUMBERS DISPLAYED REPRESENT MINIMUM INHIBITORY CONCENTRATION (BRITTANY) WHICH IS EXPRESSED IN MCG/ML. UNLESS OTHERWISE INDICATED, ALL TESTING PERFORMED AT [facility] [address] [place] [address] TYPEWRITER TESTER: JONATHAN TREJO M.D. CLIA NUMBER [id number] [facility] [place]. [id number], [id number] 00:00:00* Test Item Value Reference Range Interpretation Comme nts CULTURE, URINE (test code = 66589) SPECIMEN NUMBER: [id number] Roger Zavaleta [id number] 00:00:00* Test Item Value Reference Range Interpretation Comme nts CULTURE, URINE (test code = 00960) SPECIMEN NUMBER: [id number] Roger Zavaleta, [id number] 00:00:00* Test Item Value Reference Range Interpretation Comme nts CULTURE, URINE (test code = 06119) SPECIMEN NUMBER: [id number] Roger Ty AustinCT/NG, NAAT, [id number] 00:00:00* Test Item Value Reference Range Interpretation Comme nts CHLAMYDIA, NAAT, URINE (test code = 75655) TEST NOT PERFORMED GONORRHEA, NAAT, URINE (test code = 40489) TEST NOT PERFORMED oRger Ty AustinCT/NG, NAAT, [id number] 00:00:00* Test Item Value Reference Range Interpretation Comme nts CHLAMYDIA, NAAT, URINE (test code = 82488) TEST NOT PERFORMED GONORRHEA, NAAT, URINE (test code = 44132) TEST NOT PERFORMED Roger F AustinCT/NG, NAAT, [id number] 00:00:00* Test Item Value Reference Range Interpretation Comme nts CHLAMYDIA, NAAT, URINE (test code = 50222) TEST NOT PERFORMED GONORRHEA, NAAT, URINE (test code = 35077) TEST NOT PERFORMED Roger F AustinCT/NG, NAAT, [id number] 00:00:00* Test Item Value Reference Range Interpretation Comme nts CHLAMYDIA, NAAT, URINE (test code = 34201) TEST NOT PERFORMED GONORRHEA, NAAT, URINE (test code = 60048) TEST NOT PERFORMED Roger F AustinCT/NG, NAAT, [id number] 00:00:00* Test Item Value Reference Range Interpretation Comme nts CHLAMYDIA, NAAT, URINE (test code = 08954) TEST NOT PERFORMED GONORRHEA, NAAT, URINE (test code = 85792) TEST NOT PERFORMED Roger F AustinCT/NG, NAAT, [id number] 00:00:00* Test Item Value Reference Range Interpretation Comme nts CHLAMYDIA, NAAT, URINE (test code = 73042) TEST NOT PERFORMED GONORRHEA, NAAT, URINE (test code = 04898) TEST NOT PERFORMED Roger F AustinCT/NG, NAAT, [id number] 00:00:00* Test Item Value Reference Range Interpretation Comme nts CHLAMYDIA, NAAT, URINE (test code = 09762) TEST NOT PERFORMED GONORRHEA, NAAT, URINE (test code = 81609) TEST NOT PERFORMED Roger F AustinCT/NG, NAAT, [id number] 00:00:00* Test Item Value Reference Range Interpretation Comme nts CHLAMYDIA, NAAT, URINE (test code = 87124) TEST NOT PERFORMED GONORRHEA, NAAT, URINE (test code = 75031) TEST NOT PERFORMED Roger F AustinCULTURE, [id number] 00:00:00* Test Item Value Reference Range Interpretation Comme nts CULTURE, URINE (test code = 68430) SPECIMEN NUMBER: [id number] Roger F AustinCULTURE, [id number] 00:00:00* Test Item Value Reference Range Interpretation Comme nts CULTURE, URINE (test code = 00708) SPECIMEN NUMBER: [id number] Roger Zavaleta, [id number] 00:00:00* Test Item Value Reference Range Interpretation Comme nts CULTURE, URINE (test code = 89922) SPECIMEN NUMBER: [id number] Roger Zavaleta, [id number] 00:00:00* Test Item Value Reference Range Interpretation Comme nts CULTURE, URINE (test code = 96883) SPECIMEN NUMBER: [id number] Roger Zavaleta, [id number] 00:00:00* Test Item Value Reference Range Interpretation Comme nts CULTURE, URINE (test code = 87516) SPECIMEN NUMBER: [id number] Roger Zavaleta, [id number] 00:00:00* Test Item Value Reference Range Interpretation Comme nts CULTURE, URINE (test code = 65452) SPECIMEN NUMBER: [id number] Roger Zavaleta, [id number] 00:00:00* Test Item Value Reference Range Interpretation Comme nts CULTURE, URINE (test code = 00745) SPECIMEN NUMBER: [id number] Roger Zavaleta, [id number] 00:00:00* Test Item Value Reference Range Interpretation Comme nts CULTURE, URINE (test code = 06873) SPECIMEN NUMBER: [id number] Roger StrongRPR REFLEX TO T. PALLIDUM - [id number] 00:00:00* Test Item Value Reference Range Interpretation Comme nts RPR (test code = 57723) NON-REACTIVE RPR TITER (test code = 3500) NOT INDIC. TITER Roger Ty AustinHIV 1/2 4TH GEN, RFLX [id number] 00:00:00* Test Item Value Reference Range Interpretation Comme nts HIV 1/2 4TH GEN, RFLX CONF ( test code = 3514) NON-REACTIVE Roger StrongGLUCOSE, 1 HR, GESTATIONAL SCREEN, 50 GM [id number] 00:00:00 * Test Item Value Reference Range Interpretation Comme nts GLUCOSE 1 HR POST 50 GM (ashley t code = 2005) 120 MG/DL Roger StrongCBC W/AUTO [id number] 00:00:00* Test Item Value Reference Range Interpretation Comme nts WBC (test code = 1001) 9.4 K/UL RBC (test code = 1002) 3.74 M/UL HEMOGLOBIN (test code = 1003) 11.5 G/DL HEMATOCRIT (test code = 1004) 34.5 % MCV (test code = 1005) 92.2 fL MCH (test code = 1006) 30.7 PG MCHC (test code = 1007) 33.3 G/DL RDW (test code = 1038) 12.9 % NEUTROPHILS (test code = 1008) 72.8 % LYMPHOCYTES (test code = 1010) 19.3 % MONOCYTES (test code = 1011) 5.3 % EOSINOPHILS (test code = 1012) 1.0 % BASOPHILS (test code = 1013) 0.7 % IMMATURE GRANULOCYTES (test code = 1036) 0.9 % NUCLEATED RBCS (test code = 1065) 0.0 /100WBC'S PLATELET COUNT (test code = 1015) 269 K/UL ABSOLUTE NEUTROPHILS (test c ode = 1066) 6.83 K/UL ABSOLUTE LYMPHOCYTES (test c ode = 1067) 1.81 K/UL ABSOLUTE MONOCYTES (test cod e = 1068) 0.50 K/UL ABSOLUTE EOSINOPHILS (test c ode = 1040) 0.09 K/UL ABSOLUTE BASOPHILS (test cod e = 1069) 0.07 K/UL ABS IMMATURE GRANULOCYTES (t est code = 1020) 0.08 K/UL ABS NUCLEATED RBCS (test cod e = 03143) 0.00 K/UL Roger StrongRPR REFLEX TO T. PALLIDUM - [id number] 00:00:00* Test Item Value Reference Range Interpretation Comme nts RPR (test code = 42205) NON-REACTIVE RPR TITER (test code = 3500) NOT INDIC. TITER Roger StrongHIV 1/2 4TH GEN, RFLX [id number] 00:00:00* Test Item Value Reference Range Interpretation Comme nts HIV 1/2 4TH GEN, RFLX CONF ( test code = 3514) NON-REACTIVE Roger StrongGLUCOSE, 1 HR, GESTATIONAL SCREEN, 50 GM [id number] 00:00:00 * Test Item Value Reference Range Interpretation Comme nts GLUCOSE 1 HR POST 50 GM (ashley t code = 2005) 120 MG/DL Roger StrongCBC W/AUTO [id number] 00:00:00* Test Item Value Reference Range Interpretation Comme nts WBC (test code = 1001) 9.4 K/UL RBC (test code = 1002) 3.74 M/UL HEMOGLOBIN (test code = 1003) 11.5 G/DL HEMATOCRIT (test code = 1004) 34.5 % MCV (test code = 1005) 92.2 fL MCH (test code = 1006) 30.7 PG MCHC (test code = 1007) 33.3 G/DL RDW (test code = 1038) 12.9 % NEUTROPHILS (test code = 1008) 72.8 % LYMPHOCYTES (test code = 1010) 19.3 % MONOCYTES (test code = 1011) 5.3 % EOSINOPHILS (test code = 1012) 1.0 % BASOPHILS (test code = 1013) 0.7 % IMMATURE GRANULOCYTES (test code = 1036) 0.9 % NUCLEATED RBCS (test code = 1065) 0.0 /100WBC'S PLATELET COUNT (test code = 1015) 269 K/UL ABSOLUTE NEUTROPHILS (test c ode = 1066) 6.83 K/UL ABSOLUTE LYMPHOCYTES (test c ode = 1067) 1.81 K/UL ABSOLUTE MONOCYTES (test cod e = 1068) 0.50 K/UL ABSOLUTE EOSINOPHILS (test c ode = 1040) 0.09 K/UL ABSOLUTE BASOPHILS (test cod e = 1069) 0.07 K/UL ABS IMMATURE GRANULOCYTES (t est code = 1020) 0.08 K/UL ABS NUCLEATED RBCS (test cod e = 87308) 0.00 K/UL Roger StrongRPR REFLEX TO T. PALLIDUM - [id number] 00:00:00* Test Item Value Reference Range Interpretation Comme nts RPR (test code = 21707) NON-REACTIVE RPR TITER (test code = 3500) NOT INDIC. TITER Roger StrongHIV 1/2 4TH GEN, RFLX [id number] 00:00:00* Test Item Value Reference Range Interpretation Comme nts HIV 1/2 4TH GEN, RFLX CONF ( test code = 3514) NON-REACTIVE Roger StrongGLUCOSE, 1 HR, GESTATIONAL SCREEN, 50 GM [id number] 00:00:00 * Test Item Value Reference Range Interpretation Comme nts GLUCOSE 1 HR POST 50 GM (ashley t code = 2005) 120 MG/DL Roger StrongCBC W/AUTO [id number] 00:00:00* Test Item Value Reference Range Interpretation Comme nts WBC (test code = 1001) 9.4 K/UL RBC (test code = 1002) 3.74 M/UL HEMOGLOBIN (test code = 1003) 11.5 G/DL HEMATOCRIT (test code = 1004) 34.5 % MCV (test code = 1005) 92.2 fL MCH (test code = 1006) 30.7 PG MCHC (test code = 1007) 33.3 G/DL RDW (test code = 1038) 12.9 % NEUTROPHILS (test code = 1008) 72.8 % LYMPHOCYTES (test code = 1010) 19.3 % MONOCYTES (test code = 1011) 5.3 % EOSINOPHILS (test code = 1012) 1.0 % BASOPHILS (test code = 1013) 0.7 % IMMATURE GRANULOCYTES (test code = 1036) 0.9 % NUCLEATED RBCS (test code = 1065) 0.0 /100WBC'S PLATELET COUNT (test code = 1015) 269 K/UL ABSOLUTE NEUTROPHILS (test c ode = 1066) 6.83 K/UL ABSOLUTE LYMPHOCYTES (test c ode = 1067) 1.81 K/UL ABSOLUTE MONOCYTES (test cod e = 1068) 0.50 K/UL ABSOLUTE EOSINOPHILS (test c ode = 1040) 0.09 K/UL ABSOLUTE BASOPHILS (test cod e = 1069) 0.07 K/UL ABS IMMATURE GRANULOCYTES (t est code = 1020) 0.08 K/UL ABS NUCLEATED RBCS (test cod e = 59561) 0.00 K/UL Roger StrongRPR REFLEX TO T. PALLIDUM - [id number] 00:00:00* Test Item Value Reference Range Interpretation Comme nts RPR (test code = 81850) NON-REACTIVE RPR TITER (test code = 3500) NOT INDIC. TITER Roger StrongHIV 1/2 4TH GEN, RFLX [id number] 00:00:00* Test Item Value Reference Range Interpretation Comme nts HIV 1/2 4TH GEN, RFLX CONF ( test code = 3514) NON-REACTIVE Roger StrongGLUCOSE, 1 HR, GESTATIONAL SCREEN, 50 GM [id number] 00:00:00 * Test Item Value Reference Range Interpretation Comme nts GLUCOSE 1 HR POST 50 GM (ashley t code = 2005) 120 MG/DL Roger StrongCBC W/AUTO [id number] 00:00:00* Test Item Value Reference Range Interpretation Comme nts WBC (test code = 1001) 9.4 K/UL RBC (test code = 1002) 3.74 M/UL HEMOGLOBIN (test code = 1003) 11.5 G/DL HEMATOCRIT (test code = 1004) 34.5 % MCV (test code = 1005) 92.2 fL MCH (test code = 1006) 30.7 PG MCHC (test code = 1007) 33.3 G/DL RDW (test code = 1038) 12.9 % NEUTROPHILS (test code = 1008) 72.8 % LYMPHOCYTES (test code = 1010) 19.3 % MONOCYTES (test code = 1011) 5.3 % EOSINOPHILS (test code = 1012) 1.0 % BASOPHILS (test code = 1013) 0.7 % IMMATURE GRANULOCYTES (test code = 1036) 0.9 % NUCLEATED RBCS (test code = 1065) 0.0 /100WBC'S PLATELET COUNT (test code = 1015) 269 K/UL ABSOLUTE NEUTROPHILS (test c ode = 1066) 6.83 K/UL ABSOLUTE LYMPHOCYTES (test c ode = 1067) 1.81 K/UL ABSOLUTE MONOCYTES (test cod e = 1068) 0.50 K/UL ABSOLUTE EOSINOPHILS (test c ode = 1040) 0.09 K/UL ABSOLUTE BASOPHILS (test cod e = 1069) 0.07 K/UL ABS IMMATURE GRANULOCYTES (t est code = 1020) 0.08 K/UL ABS NUCLEATED RBCS (test cod e = 51131) 0.00 K/UL Roger StrongRPR REFLEX TO T. PALLIDUM - [id number] 00:00:00* Test Item Value Reference Range Interpretation Comme nts RPR (test code = 19697) NON-REACTIVE RPR TITER (test code = 3500) NOT INDIC. TITER Roger StrongHIV 1/2 4TH GEN, RFLX [id number] 00:00:00* Test Item Value Reference Range Interpretation Comme nts HIV 1/2 4TH GEN, RFLX CONF ( test code = 3514) NON-REACTIVE Roger StrongGLUCOSE, 1 HR, GESTATIONAL SCREEN, 50 GM [id number] 00:00:00 * Test Item Value Reference Range Interpretation Comme nts GLUCOSE 1 HR POST 50 GM (ashley t code = 2005) 120 MG/DL Roger StrongCBC W/AUTO [id number] 00:00:00* Test Item Value Reference Range Interpretation Comme nts WBC (test code = 1001) 9.4 K/UL RBC (test code = 1002) 3.74 M/UL HEMOGLOBIN (test code = 1003) 11.5 G/DL HEMATOCRIT (test code = 1004) 34.5 % MCV (test code = 1005) 92.2 fL MCH (test code = 1006) 30.7 PG MCHC (test code = 1007) 33.3 G/DL RDW (test code = 1038) 12.9 % NEUTROPHILS (test code = 1008) 72.8 % LYMPHOCYTES (test code = 1010) 19.3 % MONOCYTES (test code = 1011) 5.3 % EOSINOPHILS (test code = 1012) 1.0 % BASOPHILS (test code = 1013) 0.7 % IMMATURE GRANULOCYTES (test code = 1036) 0.9 % NUCLEATED RBCS (test code = 1065) 0.0 /100WBC'S PLATELET COUNT (test code = 1015) 269 K/UL ABSOLUTE NEUTROPHILS (test c ode = 1066) 6.83 K/UL ABSOLUTE LYMPHOCYTES (test c ode = 1067) 1.81 K/UL ABSOLUTE MONOCYTES (test cod e = 1068) 0.50 K/UL ABSOLUTE EOSINOPHILS (test c ode = 1040) 0.09 K/UL ABSOLUTE BASOPHILS (test cod e = 1069) 0.07 K/UL ABS IMMATURE GRANULOCYTES (t est code = 1020) 0.08 K/UL ABS NUCLEATED RBCS (test cod e = 53162) 0.00 K/UL Roger StrongRPR REFLEX TO T. PALLIDUM - [id number] 00:00:00* Test Item Value Reference Range Interpretation Comme nts RPR (test code = 43617) NON-REACTIVE RPR TITER (test code = 3500) NOT INDIC. TITER Roger StrongHIV 1/2 4TH GEN, RFLX [id number] 00:00:00* Test Item Value Reference Range Interpretation Comme nts HIV 1/2 4TH GEN, RFLX CONF ( test code = 3514) NON-REACTIVE Roger StrongGLUCOSE, 1 HR, GESTATIONAL SCREEN, 50 GM [id number] 00:00:00 * Test Item Value Reference Range Interpretation Comme nts GLUCOSE 1 HR POST 50 GM (ashley t code = 2005) 120 MG/DL Roger StrongCBC W/AUTO [id number] 00:00:00* Test Item Value Reference Range Interpretation Comme nts WBC (test code = 1001) 9.4 K/UL RBC (test code = 1002) 3.74 M/UL HEMOGLOBIN (test code = 1003) 11.5 G/DL HEMATOCRIT (test code = 1004) 34.5 % MCV (test code = 1005) 92.2 fL MCH (test code = 1006) 30.7 PG MCHC (test code = 1007) 33.3 G/DL RDW (test code = 1038) 12.9 % NEUTROPHILS (test code = 1008) 72.8 % LYMPHOCYTES (test code = 1010) 19.3 % MONOCYTES (test code = 1011) 5.3 % EOSINOPHILS (test code = 1012) 1.0 % BASOPHILS (test code = 1013) 0.7 % IMMATURE GRANULOCYTES (test code = 1036) 0.9 % NUCLEATED RBCS (test code = 1065) 0.0 /100WBC'S PLATELET COUNT (test code = 1015) 269 K/UL ABSOLUTE NEUTROPHILS (test c ode = 1066) 6.83 K/UL ABSOLUTE LYMPHOCYTES (test c ode = 1067) 1.81 K/UL ABSOLUTE MONOCYTES (test cod e = 1068) 0.50 K/UL ABSOLUTE EOSINOPHILS (test c ode = 1040) 0.09 K/UL ABSOLUTE BASOPHILS (test cod e = 1069) 0.07 K/UL ABS IMMATURE GRANULOCYTES (t est code = 1020) 0.08 K/UL ABS NUCLEATED RBCS (test cod e = 59626) 0.00 K/UL Roger StrongRPR REFLEX TO T. PALLIDUM - [id number] 00:00:00* Test Item Value Reference Range Interpretation Comme nts RPR (test code = 80486) NON-REACTIVE RPR TITER (test code = 3500) NOT INDIC. TITER Roger StrongHIV 1/2 4TH GEN, RFLX [id number] 00:00:00* Test Item Value Reference Range Interpretation Comme nts HIV 1/2 4TH GEN, RFLX CONF ( test code = 3514) NON-REACTIVE Roger StrongGLUCOSE, 1 HR, GESTATIONAL SCREEN, 50 GM [id number] 00:00:00 * Test Item Value Reference Range Interpretation Comme nts GLUCOSE 1 HR POST 50 GM (ashley t code = 2005) 120 MG/DL Roger StrongCBC W/AUTO [id number] 00:00:00* Test Item Value Reference Range Interpretation Comme nts WBC (test code = 1001) 9.4 K/UL RBC (test code = 1002) 3.74 M/UL HEMOGLOBIN (test code = 1003) 11.5 G/DL HEMATOCRIT (test code = 1004) 34.5 % MCV (test code = 1005) 92.2 fL MCH (test code = 1006) 30.7 PG MCHC (test code = 1007) 33.3 G/DL RDW (test code = 1038) 12.9 % NEUTROPHILS (test code = 1008) 72.8 % LYMPHOCYTES (test code = 1010) 19.3 % MONOCYTES (test code = 1011) 5.3 % EOSINOPHILS (test code = 1012) 1.0 % BASOPHILS (test code = 1013) 0.7 % IMMATURE GRANULOCYTES (test code = 1036) 0.9 % NUCLEATED RBCS (test code = 1065) 0.0 /100WBC'S PLATELET COUNT (test code = 1015) 269 K/UL ABSOLUTE NEUTROPHILS (test c ode = 1066) 6.83 K/UL ABSOLUTE LYMPHOCYTES (test c ode = 1067) 1.81 K/UL ABSOLUTE MONOCYTES (test cod e = 1068) 0.50 K/UL ABSOLUTE EOSINOPHILS (test c ode = 1040) 0.09 K/UL ABSOLUTE BASOPHILS (test cod e = 1069) 0.07 K/UL ABS IMMATURE GRANULOCYTES (t est code = 1020) 0.08 K/UL ABS NUCLEATED RBCS (test cod e = 62485) 0.00 K/UL Roger StrongRPR REFLEX TO T. PALLIDUM - [id number] 00:00:00* Test Item Value Reference Range Interpretation Comme nts RPR (test code = 19061) NON-REACTIVE RPR TITER (test code = 3500) NOT INDIC. TITER Roger StrongHIV 1/2 4TH GEN, RFLX [id number] 00:00:00* Test Item Value Reference Range Interpretation Comme nts HIV 1/2 4TH GEN, RFLX CONF ( test code = 3514) NON-REACTIVE Roger StrongGLUCOSE, 1 HR, GESTATIONAL SCREEN, 50 GM [id number] 00:00:00 * Test Item Value Reference Range Interpretation Comme nts GLUCOSE 1 HR POST 50 GM (ashley t code = 2005) 120 MG/DL Roger StrongCBC W/AUTO [id number] 00:00:00* Test Item Value Reference Range Interpretation Comme nts WBC (test code = 1001) 9.4 K/UL RBC (test code = 1002) 3.74 M/UL HEMOGLOBIN (test code = 1003) 11.5 G/DL HEMATOCRIT (test code = 1004) 34.5 % MCV (test code = 1005) 92.2 fL MCH (test code = 1006) 30.7 PG MCHC (test code = 1007) 33.3 G/DL RDW (test code = 1038) 12.9 % NEUTROPHILS (test code = 1008) 72.8 % LYMPHOCYTES (test code = 1010) 19.3 % MONOCYTES (test code = 1011) 5.3 % EOSINOPHILS (test code = 1012) 1.0 % BASOPHILS (test code = 1013) 0.7 % IMMATURE GRANULOCYTES (test code = 1036) 0.9 % NUCLEATED RBCS (test code = 1065) 0.0 /100WBC'S PLATELET COUNT (test code = 1015) 269 K/UL ABSOLUTE NEUTROPHILS (test c ode = 1066) 6.83 K/UL ABSOLUTE LYMPHOCYTES (test c ode = 1067) 1.81 K/UL ABSOLUTE MONOCYTES (test cod e = 1068) 0.50 K/UL ABSOLUTE EOSINOPHILS (test c ode = 1040) 0.09 K/UL ABSOLUTE BASOPHILS (test cod e = 1069) 0.07 K/UL ABS IMMATURE GRANULOCYTES (t est code = 1020) 0.08 K/UL ABS NUCLEATED RBCS (test cod e = 20074) 0.00 K/UL Roger Barrettn 14 ([employer])2024-05-28 00:00:00* Test Item Value Reference Range Interpretation Comme nts Report Summary (test code = REPORT_SUMMARY) Positive Galactosemia (test code = 42906) Positive Alpha-Thalassemia (test code = 71330) Negative Beta-Hemoglobinopathies (ashley t code = 43940) Negative Lakeshia Disease (test code = 80378) Negative Cystic Fibrosis (test code = 68884) Negative Duchenne/Dickinson Muscular Dys trophy (test code = 37114) Negative Familial Dysautonomia (test code = 58767) Negative Fragile X Syndrome (test cod e = 54625) Negative Gaucher Disease (test code = 68722) Negative Medium Chain Acyl-CoA Dehydr ogenase Deficiency (test code = 14430) Negative Polycystic Kidney Disease, Autosomal Recessive (test code = 31372) Negative Dqrkt-Agzam-Gwywi Syndrome ( test code = 81186) Negative Spinal Muscular Atrophy (ashley t code = 70791) Negative Killian-Sachs Disease (test code = 28530) Negative Panel Notes (test code = CS_PANEL_NOTES) See Notes Report Note (test code = REPORT_NOTE) See Notes Footnotes (test code = FOOTNOTES) See Notes PDF Report (test code = EMBEDDED_PDF) PDF Roger Barrettn 14 ([employer])2024-05-28 00:00:00* Test Item Value Reference Range Interpretation Comme nts Report Summary (test code = REPORT_SUMMARY) Positive Galactosemia (test code = 54070) Positive Alpha-Thalassemia (test code = 81900) Negative Beta-Hemoglobinopathies (ashley t code = 35568) Negative Lakeshia Disease (test code = 03510) Negative Cystic Fibrosis (test code = 50076) Negative Duchenne/Dickinson Muscular Dys trophy (test code = 21798) Negative Familial Dysautonomia (test code = 95103) Negative Fragile X Syndrome (test cod e = 91206) Negative Gaucher Disease (test code = 90362) Negative Medium Chain Acyl-CoA Dehydr ogenase Deficiency (test code = 05893) Negative Polycystic Kidney Disease, Autosomal Recessive (test code = 20620) Negative Asaqg-Ihbdh-Pgkfa Syndrome ( test code = 02137) Negative Spinal Muscular Atrophy (ashley t code = 90183) Negative Killian-Sachs Disease (test code = 78906) Negative Panel Notes (test code = CS_PANEL_NOTES) See Notes Report Note (test code = REPORT_NOTE) See Notes Footnotes (test code = FOOTNOTES) See Notes PDF Report (test code = EMBEDDED_PDF) PDF Roger Ty AustinHorizon 14 ([employer])2024-05-28 00:00:00* Test Item Value Reference Range Interpretation Comme nts Report Summary (test code = REPORT_SUMMARY) Positive Galactosemia (test code = 43673) Positive Alpha-Thalassemia (test code = 01819) Negative Beta-Hemoglobinopathies (ashley t code = 00766) Negative Lakeshia Disease (test code = 68145) Negative Cystic Fibrosis (test code = 37806) Negative Duchenne/Dickinson Muscular Dys trophy (test code = 55272) Negative Familial Dysautonomia (test code = 00955) Negative Fragile X Syndrome (test cod e = 98453) Negative Gaucher Disease (test code = 44708) Negative Medium Chain Acyl-CoA Dehydr ogenase Deficiency (test code = 21085) Negative Polycystic Kidney Disease, Autosomal Recessive (test code = 72399) Negative Besos-Ikktn-Eugdj Syndrome ( test code = 90591) Negative Spinal Muscular Atrophy (ashley t code = 44068) Negative Killian-Sachs Disease (test code = 95429) Negative Panel Notes (test code = CS_PANEL_NOTES) See Notes Report Note (test code = REPORT_NOTE) See Notes Footnotes (test code = FOOTNOTES) See Notes PDF Report (test code = EMBEDDED_PDF) PDF Roger Ty AustinHorizon 14 ([employer])2024-05-28 00:00:00* Test Item Value Reference Range Interpretation Comme nts Report Summary (test code = REPORT_SUMMARY) Positive Galactosemia (test code = 16753) Positive Alpha-Thalassemia (test code = 53682) Negative Beta-Hemoglobinopathies (ashley t code = 66171) Negative Lakeshia Disease (test code = 79834) Negative Cystic Fibrosis (test code = 22451) Negative Duchenne/Dickinson Muscular Dys trophy (test code = 32607) Negative Familial Dysautonomia (test code = 61812) Negative Fragile X Syndrome (test cod e = 09672) Negative Gaucher Disease (test code = 46129) Negative Medium Chain Acyl-CoA Dehydr ogenase Deficiency (test code = 41334) Negative Polycystic Kidney Disease, Autosomal Recessive (test code = 56997) Negative Xhydg-Dyrqp-Jtoji Syndrome ( test code = 46185) Negative Spinal Muscular Atrophy (ashley t code = 59993) Negative Killian-Sachs Disease (test code = 83097) Negative Panel Notes (test code = CS_PANEL_NOTES) See Notes Report Note (test code = REPORT_NOTE) See Notes Footnotes (test code = FOOTNOTES) See Notes PDF Report (test code = EMBEDDED_PDF) PDF Roger Browerzon 14 ([employer])2024-05-28 00:00:00* Test Item Value Reference Range Interpretation Comme nts Report Summary (test code = REPORT_SUMMARY) Positive Galactosemia (test code = 44828) Positive Alpha-Thalassemia (test code = 06388) Negative Beta-Hemoglobinopathies (ashley t code = 42169) Negative Lakeshia Disease (test code = 59803) Negative Cystic Fibrosis (test code = 88351) Negative Duchenne/Dickinson Muscular Dys trophy (test code = 70208) Negative Familial Dysautonomia (test code = 97630) Negative Fragile X Syndrome (test cod e = 36061) Negative Gaucher Disease (test code = 20157) Negative Medium Chain Acyl-CoA Dehydr ogenase Deficiency (test code = 06459) Negative Polycystic Kidney Disease, Autosomal Recessive (test code = 95513) Negative Bebcl-Pxnhi-Zjnmh Syndrome ( test code = 70091) Negative Spinal Muscular Atrophy (ashley t code = 70563) Negative Killian-Sachs Disease (test code = 37126) Negative Panel Notes (test code = CS_PANEL_NOTES) See Notes Report Note (test code = REPORT_NOTE) See Notes Footnotes (test code = FOOTNOTES) See Notes PDF Report (test code = EMBEDDED_PDF) PDF Roger Browerzon 14 ([employer])2024-05-28 00:00:00* Test Item Value Reference Range Interpretation Comme nts Report Summary (test code = REPORT_SUMMARY) Positive Galactosemia (test code = 88630) Positive Alpha-Thalassemia (test code = 09323) Negative Beta-Hemoglobinopathies (ashley t code = 70459) Negative Lakeshia Disease (test code = 84847) Negative Cystic Fibrosis (test code = 82440) Negative Duchenne/Dickinson Muscular Dys trophy (test code = 45021) Negative Familial Dysautonomia (test code = 74128) Negative Fragile X Syndrome (test cod e = 30870) Negative Gaucher Disease (test code = 06404) Negative Medium Chain Acyl-CoA Dehydr ogenase Deficiency (test code = 25783) Negative Polycystic Kidney Disease, Autosomal Recessive (test code = 94996) Negative Phdik-Ocavh-Jledf Syndrome ( test code = 50509) Negative Spinal Muscular Atrophy (ashley t code = 44893) Negative Killian-Sachs Disease (test code = 84146) Negative Panel Notes (test code = CS_PANEL_NOTES) See Notes Report Note (test code = REPORT_NOTE) See Notes Footnotes (test code = FOOTNOTES) See Notes PDF Report (test code = EMBEDDED_PDF) PDF Roger Ty Omer 14 ([employer])2024-05-28 00:00:00* Test Item Value Reference Range Interpretation Comme nts Report Summary (test code = REPORT_SUMMARY) Positive Galactosemia (test code = 26785) Positive Alpha-Thalassemia (test code = 52413) Negative Beta-Hemoglobinopathies (ashley t code = 90769) Negative Lakeshia Disease (test code = 74332) Negative Cystic Fibrosis (test code = 64798) Negative Duchenne/Dickinson Muscular Dys trophy (test code = 30798) Negative Familial Dysautonomia (test code = 71450) Negative Fragile X Syndrome (test cod e = 95435) Negative Gaucher Disease (test code = 09535) Negative Medium Chain Acyl-CoA Dehydr ogenase Deficiency (test code = 93181) Negative Polycystic Kidney Disease, Autosomal Recessive (test code = 10887) Negative Ywjfs-Gwcgm-Lfhls Syndrome ( test code = 70990) Negative Spinal Muscular Atrophy (ashley t code = 43172) Negative Killian-Sachs Disease (test code = 98170) Negative Panel Notes (test code = CS_PANEL_NOTES) See Notes Report Note (test code = REPORT_NOTE) See Notes Footnotes (test code = FOOTNOTES) See Notes PDF Report (test code = EMBEDDED_PDF) PDF Roger Tello 14 ([employer])2024-05-28 00:00:00* Test Item Value Reference Range Interpretation Comme nts Report Summary (test code = REPORT_SUMMARY) Positive Galactosemia (test code = 72816) Positive Alpha-Thalassemia (test code = 46680) Negative Beta-Hemoglobinopathies (ashley t code = 30506) Negative Lakeshia Disease (test code = 84483) Negative Cystic Fibrosis (test code = 73129) Negative Duchenne/Dickinson Muscular Dys trophy (test code = 79261) Negative Familial Dysautonomia (test code = 17982) Negative Fragile X Syndrome (test cod e = 00144) Negative Gaucher Disease (test code = 32349) Negative Medium Chain Acyl-CoA Dehydr ogenase Deficiency (test code = 74316) Negative Polycystic Kidney Disease, Autosomal Recessive (test code = 77166) Negative Tdjsm-Ikyqw-Lcahj Syndrome ( test code = 66958) Negative Spinal Muscular Atrophy (ashley t code = 00189) Negative Killian-Sachs Disease (test code = 50116) Negative Panel Notes (test code = CS_PANEL_NOTES) See Notes Report Note (test code = REPORT_NOTE) See Notes Footnotes (test code = FOOTNOTES) See Notes PDF Report (test code = EMBEDDED_PDF) PDF Roger Zavaleta [id number] 00:00:00* Test Item Value Reference Range Interpretation Comme nts CULTURE, URINE (test code = 22823) SPECIMEN NUMBER: [id number] Roger Zavaleta [id number] 00:00:00* Test Item Value Reference Range Interpretation Comme nts CULTURE, URINE (test code = 88155) SPECIMEN NUMBER: [id number] Roger Zavaleta, [id number] 00:00:00* Test Item Value Reference Range Interpretation Comme nts CULTURE, URINE (test code = 67522) SPECIMEN NUMBER: [id number] Roger Zavaleta, [id number] 00:00:00* Test Item Value Reference Range Interpretation Comme nts CULTURE, URINE (test code = 41189) SPECIMEN NUMBER: [id number] Roger Zavaleta, [id number] 00:00:00* Test Item Value Reference Range Interpretation Comme nts CULTURE, URINE (test code = 11139) SPECIMEN NUMBER: [id number] Roger Zavaleta, [id number] 00:00:00* Test Item Value Reference Range Interpretation Comme nts CULTURE, URINE (test code = 10364) SPECIMEN NUMBER: [id number] Roger Zavaleta [id number] 00:00:00* Test Item Value Reference Range Interpretation Comme nts CULTURE, URINE (test code = 26791) SPECIMEN NUMBER: [id number] Roger Zavaleta [id number] 00:00:00* Test Item Value Reference Range Interpretation Comme nts CULTURE, URINE (test code = 47513) SPECIMEN NUMBER: [id number] Roger Zavaleta [id number] 00:00:00* Test Item Value Reference Range Interpretation Comme nts CULTURE, URINE (test code = 49391) SPECIMEN NUMBER: [id number] Roger Zavaleta, [id number] 00:00:00* Test Item Value Reference Range Interpretation Comme nts CULTURE, URINE (test code = 94918) SPECIMEN NUMBER: [id number] Roger Zavaleta, [id number] 00:00:00* Test Item Value Reference Range Interpretation Comme nts CULTURE, URINE (test code = 78819) SPECIMEN NUMBER: [id number] Roger Zavaleta, [id number] 00:00:00* Test Item Value Reference Range Interpretation Comme nts CULTURE, URINE (test code = 16282) SPECIMEN NUMBER: [id number] Roger Zavaleta, [id number] 00:00:00* Test Item Value Reference Range Interpretation Comme nts CULTURE, URINE (test code = 37886) SPECIMEN NUMBER: [id number] Roger GuerreroLTXOCHITL, [id number] 00:00:00* Test Item Value Reference Range Interpretation Comme nts CULTURE, URINE (test code = 05815) SPECIMEN NUMBER: [id number] Roger GuerreroLTXOCHITL, [id number] 00:00:00* Test Item Value Reference Range Interpretation Comme nts CULTURE, URINE (test code = 02215) SPECIMEN NUMBER: [id number] MARIA ELENA Joseph2024-08-01 00:00:00* Test Item Value Reference Range Interpretation Comme nts CULTURE, URINE (test code = 30214) SPECIMEN NUMBER: [id number] MARIA ELENA Joseph2024-06-29 15:19:38SPECIMEN NUMBER: [id number] CULTURE, URINE SPECIMEN NUMBER: [id number] SPECIMEN COMMENT: URINE SOURCE: URINE REPORT STATUS: FINAL ISOLATE NUMBER 1: ORGANISM: 03/19/2024 >100,000 CFU/ML GRAM NEGATIVEBACILLI IDENTIFICATION: 03/20/2024 ESCHERICHIA COLI E. COLI AMOXICILLIN/CA SENSITIVE <=8/4AMPICILLIN RESISTANT >16CEFAZOLIN SENSITIVE <=2CEFTRIAXONE SENSITIVE <=1CIPROFLOXACIN SENSITIVE <=0.25LEVOFLOXACIN SENSITIVE <=0.5NITROFURANTOIN SENSITIVE <=32PIP/TAZOBAC SENSITIVE <=16TOBRAMYCIN SENSITIVE <=4TRIMETH/SULFA SENSITIVE <=2/38 NOTE: NUMBERS DISPLAYED REPRESENT MINIMUM INHIBITORY CONCENTRATION (BRITTANY) WHICH IS EXPRESSED IN MCG/ML.CULTURE, [id number] 00:00:00* Test Item Value Reference Range Interpretation Comme nts CULTURE, URINE (test code = 00438) SPECIMEN NUMBER: [id number] MARIA ELENA Joseph2024-06-29 00:00:00* Test Item Value Reference Range Interpretation Comme nts CULTURE, URINE (test code = 00443) SPECIMEN NUMBER: [id number] Roger Zavaleta [id number] 00:00:00* Test Item Value Reference Range Interpretation Comme nts CULTURE, URINE (test code = 18880) SPECIMEN NUMBER: [id number] Roger Zavaleta [id number] 00:00:00* Test Item Value Reference Range Interpretation Comme nts CULTURE, URINE (test code = 11777) SPECIMEN NUMBER: [id number] MARIA ELENA Joseph2024-06-29 00:00:00* Test Item Value Reference Range Interpretation Comme nts CULTURE, URINE (test code = 53983) SPECIMEN NUMBER: [id number] Roger Zavaleta [id number] 00:00:00* Test Item Value Reference Range Interpretation Comme nts CULTURE, URINE (test code = 49784) SPECIMEN NUMBER: [id number] Roger Zavaleta, [id number] 00:00:00* Test Item Value Reference Range Interpretation Comme nts CULTURE, URINE (test code = 21958) SPECIMEN NUMBER: [id number] Roger Zavaleta, [id number] 00:00:00* Test Item Value Reference Range Interpretation Comme nts CULTURE, URINE (test code = 83359) SPECIMEN NUMBER: [id number] Roger Ty AustinHEMOGLOBIN [id number] 09:13:26* Test Item Value Reference Range Interpretation Comme nts HEMOGLOBIN A1 (test code = 2575) 97.3 % 95.0-98.5 HEMOGLOBIN A2 (test code = 2576) 2.7 % 1.6-3.7 HEMOGLOBIN F () (test code = 2722) 0.0 % 0.0-2.0 HEMOGLOBIN S (test code = 2724) NONE % NONE DETECTED HEMOGLOBIN C (test code = 2726) NONE % NONE DETECTED OTHER HEMOGLOBIN VARIANT (test code = 59240) NONE DETEC % NONE DETECTED PATHOLOGIST'S INTERPRETATION (test code = 2577) (NOTE) NO ABNORMAL HEMOGLOBINS IDENTIFIED. TITUS ROGERS M.D. HEMOGLOBIN [id number] 00:00:00* Test Item Value Reference Range Interpretation Comme nts HEMOGLOBIN A1 (test code = 2575) 97.3 % HEMOGLOBIN A2 (test code = 2576) 2.7 % HEMOGLOBIN F () (test c ode = 2722) 0.0 % HEMOGLOBIN S (test code = 2724) NONE % HEMOGLOBIN C (test code = 2726) NONE % OTHER HEMOGLOBIN VARIANT (te st code = 27274) NONE DETEC % PATHOLOGIST'S INTERPRETATION (test code = 2577) (NOTE) Roger StrongHEMOGLOBIN [id number] 00:00:00* Test Item Value Reference Range Interpretation Comme nts HEMOGLOBIN A1 (test code = 2575) 97.3 % HEMOGLOBIN A2 (test code = 2576) 2.7 % HEMOGLOBIN F () (test c ode = 2722) 0.0 % HEMOGLOBIN S (test code = 2724) NONE % HEMOGLOBIN C (test code = 2726) NONE % OTHER HEMOGLOBIN VARIANT (te st code = 37751) NONE DETEC % PATHOLOGIST'S INTERPRETATION (test code = 2577) (NOTE) Roger Ty AustinHEMOGLOBIN [id number] 00:00:00* Test Item Value Reference Range Interpretation Comme nts HEMOGLOBIN A1 (test code = 2575) 97.3 % HEMOGLOBIN A2 (test code = 2576) 2.7 % HEMOGLOBIN F () (test c ode = 2722) 0.0 % HEMOGLOBIN S (test code = 2724) NONE % HEMOGLOBIN C (test code = 2726) NONE % OTHER HEMOGLOBIN VARIANT (te st code = 97335) NONE DETEC % PATHOLOGIST'S INTERPRETATION (test code = 2577) (NOTE) Roger Ty AustinHEMOGLOBIN [id number] 00:00:00* Test Item Value Reference Range Interpretation Comme nts HEMOGLOBIN A1 (test code = 2575) 97.3 % HEMOGLOBIN A2 (test code = 2576) 2.7 % HEMOGLOBIN F () (test c ode = 2722) 0.0 % HEMOGLOBIN S (test code = 2724) NONE % HEMOGLOBIN C (test code = 2726) NONE % OTHER HEMOGLOBIN VARIANT (te st code = 23863) NONE DETEC % PATHOLOGIST'S INTERPRETATION (test code = 2577) (NOTE) Roger Ty AustinHEMOGLOBIN [id number] 00:00:00* Test Item Value Reference Range Interpretation Comme nts HEMOGLOBIN A1 (test code = 2575) 97.3 % HEMOGLOBIN A2 (test code = 2576) 2.7 % HEMOGLOBIN F () (test c ode = 2722) 0.0 % HEMOGLOBIN S (test code = 2724) NONE % HEMOGLOBIN C (test code = 2726) NONE % OTHER HEMOGLOBIN VARIANT (te st code = 11838) NONE DETEC % PATHOLOGIST'S INTERPRETATION (test code = 2577) (NOTE) Roger Ty AustinHEMOGLOBIN [id number] 00:00:00* Test Item Value Reference Range Interpretation Comme nts HEMOGLOBIN A1 (test code = 2575) 97.3 % HEMOGLOBIN A2 (test code = 2576) 2.7 % HEMOGLOBIN F () (test c ode = 2722) 0.0 % HEMOGLOBIN S (test code = 2724) NONE % HEMOGLOBIN C (test code = 2726) NONE % OTHER HEMOGLOBIN VARIANT (te st code = 23608) NONE DETEC % PATHOLOGIST'S INTERPRETATION (test code = 2577) (NOTE) Roger Ty AustinHEMOGLOBIN [id number] 00:00:00* Test Item Value Reference Range Interpretation Comme nts HEMOGLOBIN A1 (test code = 2575) 97.3 % HEMOGLOBIN A2 (test code = 2576) 2.7 % HEMOGLOBIN F () (test c ode = 2722) 0.0 % HEMOGLOBIN S (test code = 2724) NONE % HEMOGLOBIN C (test code = 2726) NONE % OTHER HEMOGLOBIN VARIANT (te st code = 36542) NONE DETEC % PATHOLOGIST'S INTERPRETATION (test code = 2577) (NOTE) Roger StrongHEMOGLOBIN [id number] 00:00:00* Test Item Value Reference Range Interpretation Comme nts HEMOGLOBIN A1 (test code = 2575) 97.3 % HEMOGLOBIN A2 (test code = 2576) 2.7 % HEMOGLOBIN F () (test c ode = 2722) 0.0 % HEMOGLOBIN S (test code = 2724) NONE % HEMOGLOBIN C (test code = 2726) NONE % OTHER HEMOGLOBIN VARIANT (te st code = 54599) NONE DETEC % PATHOLOGIST'S INTERPRETATION (test code = 2577) (NOTE) Roger StrongVARICELLA ZOSTER [id number] 14:13:26* Test Item Value Reference Range Interpretation Comme nts VARICELLA ZOSTER IgG (test code = 11006) <10 INDEX SEE BELOW L INTERPRETATI ON VZV IgG NEGATIVE . . . . . . . . . . . . INDEX <135 EQUIVOCAL. . . . . . . . . . . . INDEX 135-164 NOTE: CONSIDER RETESTING IN A CLINICALLY SUITABLE PERIOD OF TIME, NO SOONER THAN 1-2 WEEKS. POSITIVE . . . . . . . . . . . . INDEX >=165 OBSTETRIC PANEL + [id number] 06:51:11* Test Item Value Reference Range Interpretation Comme nts WBC (test code = 1001) 9.4 K/UL 3.5-11.0 RBC (test code = 1002) 4.12 M/UL 3.80-5.40 HEMOGLOBIN (test code = 1003) 12.2 G/DL 11.5-15.5 HEMATOCRIT (test code = 1004) 36.8 % 34.0-45.0 MCV (test code = 1005) 89.3 fL 80.0-99.0 MCH (test code = 1006) 29.6 PG 25.0-33.0 MCHC (test code = 1007) 33.2 G/DL 31.0-36.0 RDW (test code = 1038) 12.9 % 11.5-15.0 NEUTROPHILS (test code = 1008) 66.8 % LYMPHOCYTES (test code = 1010) 24.8 % MONOCYTES (test code = 1011) 6.2 % EOSINOPHILS (test code = 1012) 1.3 % BASOPHILS (test code = 1013) 0.5 % IMMATURE GRANULOCYTES (test code = 1036) 0.4 % NUCLEATED RBCS (test code = 1065) 0.0 /100 WBC'S See_Comment [Automated me ssage] The system which generated this result transmitted reference range: 0.0. The reference range was not used to interpret this result as normal/abnormal. PLATELET COUNT (test code = 1015) 271 K/UL 130-400 ABSOLUTE NEUTROPHILS (test code = 1066) 6.29 K/UL 1.50-7.50 ABSOLUTE LYMPHOCYTES (test code = 1067) 2.33 K/UL 1.00-4.00 ABSOLUTE MONOCYTES (test code = 1068) 0.58 K/UL 0.20-1.00 ABSOLUTE EOSINOPHILS (test code = 1040) 0.12 K/UL 0.00-0.50 ABSOLUTE BASOPHILS (test code = 1069) 0.05 K/UL 0.00-0.20 ABS IMMATURE GRANULOCYTES (test code = 1020) 0.04 K/UL 0.00-0.10 ABS NUCLEATED RBCS (test code = 54046) 0.00 K/UL 0.00-0.11 BLOOD TYPE AND RH (test code = 3901) O POSITIVE A HISTORICAL RECORD CHECK FOR PREVIOUS RESULTS IS NOT PERFORMED.THESE RESULTS SHOULD BE CORRELATED WITH RESULTS OF PRIOR BLOODTYPING AND ANTIBODY SCREEN STUDIES. ANTIBODY SCREEN (test code = 3902) NEGATIVE NEGATIVE A HISTORICAL RECORD CHECK FOR PREVIOUS RESULTS IS NOT PERFORMED.THESE RESULTS SHOULD BE CORRELATED WITH RESULTS OF PRIOR BLOODTYPING AND ANTIBODY SCREEN STUDIES. RUBELLA ANTIBODY SCREEN (test code = 4600) 22 IU/ML SEE BELOW RUBELLA IgG INTERP (test code = 58169) REACTIVE REACTIVE INTERPRETATI ON UNITS RANGE NON-REACTIVE/NON-IMM UNE IU/ML <10 REACTIVE/IMMUNE IU/ML >=10 HEPATITIS B SURF AG (test code = 2739) NON-REACTIVE NON-REACTIVE RPR (test code = 12383) NON-REACTIVE NON-REACTIVE RPR TITER (test code = 3500) NOT INDIC. TITER NOT INDIC. HIV 1/2 4TH GEN, RFLX CONF (test code = 3514) NON-REACTIVE NON-REACTIVE HEPATITIS C [id number] 06:51:11* Test Item Value Reference Range Interpretation Comme nts HEPATITIS C ANTIBODY (test c ode = 4675) NON-REACTIVE NON-REACTIVE DRUG ABUSE SCREEN 10 REFLEX [id number] 05:19:07* Test Item Value Reference Range Interpretation Comme nts AMPHETAMINES (test code = 3201) NEGATIVE NEGATIVE BARBITURATES (test code = 3202) NEGATIVE NEGATIVE BENZODIAZEPINES (test code = 3203) NEGATIVE NEGATIVE CANNABINOIDS (test code = 3204) NEGATIVE NEGATIVE COCAINE METABOLITE (test code = 3205) NEGATIVE NEGATIVE OPIATES (test code = 3209) NEGATIVE NEGATIVE OXYCODONE (test code = 97062) NEGATIVE NEGATIVE PHENCYCLIDINE (test code = 3210) NEGATIVE NEGATIVE METHADONE (test code = 3207) NEGATIVE NEGATIVE BUPRENORPHINE (test code = 71560) NEGATIVE NEGATIVE SOURCE (test code = 623891) URINE SEE BELOW FO R THRESHOLDS AND IMPORTANT METHOD NOTES ANALYTE SCREENING CUTOFF CONFIRMATORY CUTOFF AMPHETAMINES 500 NG/ML 100 NG/MLBARBITURATES 200 NG/ML 100 NG/MLBENZODIAZEPINES 200 NG/ML 100 NG/MLCANNABINOIDS (THC) 20 NG/ML 15 NG/MLCOCAINE METABOLITES 150 NG/ML 100 NG/MLOPIATE METABOLITES 300 NG/ML 100 NG/MLOXYCODONE 100 NG/ML 100 NG/MLPHENCYCLIDINE (PCP) 25 NG/ML 25 NG/MLMETHADONE 300 NG/ML 100 NG/MLBUPRENORPHINE 5 NG/ML 5 NG/ML NOTE: Screening methodology is qualitative Enzyme Immunoassay.The screening method may be less sensitive for certain medicationsincluding clonazepam and lorazepam in the benzodiazepine assay andtramadol or fentanyl in the opiate assay, amongst others. Patientcompliance, hydration status, timing and dose of medications, drugabsorption and specimen quality may affect screening assay.For clinical discrepancies, consider directed testing for specificcompounds or contact the laboratory within specimen stability to[place] for confirmatory testing. This test is specified for medicalpurposes only. It is not valid for forensic use. UNLESS OTHERWISE INDICATED, ALL TESTING PERFORMED AT [facility] [address] [place] [id number] TYPEWRITER TESTER: JONATHAN TREJO M.D. [place] NUMBER [id number] [facility] [id number] HCG, [id number] 05:12:17* Test Item Value Reference Range Interpretation Comme nts HCG, QUANTITATIVE (test code = 2506) 80410 MIU/ML SEE BELOW EXPECTED VALUES FOR HCG GST.AGE UNITS RANGE GST. AGE UNITS RANGE3 WEEKS MIU/ML 6-71 10 WEEKS MIU/ML 46,509-186,9774 WEEKS MIU/ML 10-750 12 WEEKS MIU/ML 27,832-210,6125 WEEKS MIU/ML 217-7,138 14 WEEKS MIU/ML 13,950-62,5306 WEEKS MIU/ML 158-31,795 15 WEEKS MIU/ML 12,039-70,9717 WEEKS MIU/ML 3,697-163,563 16 WEEKS MIU/ML 9,040-56,4518 WEEKS MIU/ML 32,065-149,571 17 WEEKS MIU/ML 8,175-55,8689 WEEKS MIU/ML 63,803-151,410 18 WEEKS MIU/ML 8,099-58,176MALES and NON- FEMALES . . . . . . . . MIU/ML [id number] FEMALES . . . . . . . . . . . . MIU/ML <=7 HEPATITIS C [id number] 00:00:00* Test Item Value Reference Range Interpretation Comme nts HEPATITIS C ANTIBODY (test c ode = 4675) NON-REACTIVE Roger PalmaA ZOSTER [id number] 00:00:00* Test Item Value Reference Range Interpretation Comme nts VARICELLA ZOSTER IgG (test c ode = 05875) <10 INDEX Roger StrongDRUG ABUSE SCREEN 10 REFLEX [id number] 00:00:00* Test Item Value Reference Range Interpretation Comme nts AMPHETAMINES (test code = 3201) NEGATIVE BARBITURATES (test code = 3202) NEGATIVE BENZODIAZEPINES (test code = 3203) NEGATIVE CANNABINOIDS (test code = 3204) NEGATIVE COCAINE METABOLITE (test cod e = 3205) NEGATIVE OPIATES (test code = 3209) NEGATIVE OXYCODONE (test code = 13785) NEGATIVE PHENCYCLIDINE (test code = 3210) NEGATIVE METHADONE (test code = 3207) NEGATIVE BUPRENORPHINE (test code = 95460) NEGATIVE SOURCE (test code = 387859) URINE Roger StrongHCG, [id number] 00:00:00* Test Item Value Reference Range Interpretation Comme nts HCG, QUANTITATIVE (test code = 2506) 62074 MIU/ML Roger StrongOBSTETRIC PANEL + [id number] 00:00:00* Test Item Value Reference Range Interpretation Comme nts WBC (test code = 1001) 9.4 K/UL RBC (test code = 1002) 4.12 M/UL HEMOGLOBIN (test code = 1003) 12.2 G/DL HEMATOCRIT (test code = 1004) 36.8 % MCV (test code = 1005) 89.3 fL MCH (test code = 1006) 29.6 PG MCHC (test code = 1007) 33.2 G/DL RDW (test code = 1038) 12.9 % NEUTROPHILS (test code = 1008) 66.8 % LYMPHOCYTES (test code = 1010) 24.8 % MONOCYTES (test code = 1011) 6.2 % EOSINOPHILS (test code = 1012) 1.3 % BASOPHILS (test code = 1013) 0.5 % IMMATURE GRANULOCYTES (test code = 1036) 0.4 % NUCLEATED RBCS (test code = 1065) 0.0 /100WBC'S PLATELET COUNT (test code = 1015) 271 K/UL ABSOLUTE NEUTROPHILS (test code = 1066) 6.29 K/UL ABSOLUTE LYMPHOCYTES (test code = 1067) 2.33 K/UL ABSOLUTE MONOCYTES (test code = 1068) 0.58 K/UL ABSOLUTE EOSINOPHILS (test code = 1040) 0.12 K/UL ABSOLUTE BASOPHILS (test code = 1069) 0.05 K/UL ABS IMMATURE GRANULOCYTES (test code = 1020) 0.04 K/UL ABS NUCLEATED RBCS (test code = 31981) 0.00 K/UL BLOOD TYPE AND RH (test code = 3901) O POSITIVE ANTIBODY SCREEN (test code = 3902) NEGATIVE RUBELLA ANTIBODY SCREEN (test code = 4600) 22 IU/ML RUBELLA IgG INTERP (test code = 33961) REACTIVE HEPATITIS B SURF AG (test code = 2739) NON-REACTIVE RPR (test code = 12317) NON-REACTIVE RPR TITER (test code = 3500) NOT INDIC. TITER HIV 1/2 4TH GEN, RFLX CONF (test code = 3514) NON-REACTIVE Roger StrongHEPATITIS C [id number] 00:00:00* Test Item Value Reference Range Interpretation Comme nts HEPATITIS C ANTIBODY (test c ode = 4675) NON-REACTIVE Roger StrongVARICELLA ZOSTER [id number] 00:00:00* Test Item Value Reference Range Interpretation Comme nts VARICELLA ZOSTER IgG (test c ode = 09040) <10 INDEX Roger StrongDRUG ABUSE SCREEN 10 REFLEX [id number] 00:00:00* Test Item Value Reference Range Interpretation Comme nts AMPHETAMINES (test code = 3201) NEGATIVE BARBITURATES (test code = 3202) NEGATIVE BENZODIAZEPINES (test code = 3203) NEGATIVE CANNABINOIDS (test code = 3204) NEGATIVE COCAINE METABOLITE (test cod e = 3205) NEGATIVE OPIATES (test code = 3209) NEGATIVE OXYCODONE (test code = 54478) NEGATIVE PHENCYCLIDINE (test code = 3210) NEGATIVE METHADONE (test code = 3207) NEGATIVE BUPRENORPHINE (test code = 37848) NEGATIVE SOURCE (test code = 315093) URINE Roger StrongHCG, [id number] 00:00:00* Test Item Value Reference Range Interpretation Comme nts HCG, QUANTITATIVE (test code = 2506) 37604 MIU/ML Roger StrongOBSTETRIC PANEL + [id number] 00:00:00* Test Item Value Reference Range Interpretation Comme nts WBC (test code = 1001) 9.4 K/UL RBC (test code = 1002) 4.12 M/UL HEMOGLOBIN (test code = 1003) 12.2 G/DL HEMATOCRIT (test code = 1004) 36.8 % MCV (test code = 1005) 89.3 fL MCH (test code = 1006) 29.6 PG MCHC (test code = 1007) 33.2 G/DL RDW (test code = 1038) 12.9 % NEUTROPHILS (test code = 1008) 66.8 % LYMPHOCYTES (test code = 1010) 24.8 % MONOCYTES (test code = 1011) 6.2 % EOSINOPHILS (test code = 1012) 1.3 % BASOPHILS (test code = 1013) 0.5 % IMMATURE GRANULOCYTES (test code = 1036) 0.4 % NUCLEATED RBCS (test code = 1065) 0.0 /100WBC'S PLATELET COUNT (test code = 1015) 271 K/UL ABSOLUTE NEUTROPHILS (test code = 1066) 6.29 K/UL ABSOLUTE LYMPHOCYTES (test code = 1067) 2.33 K/UL ABSOLUTE MONOCYTES (test code = 1068) 0.58 K/UL ABSOLUTE EOSINOPHILS (test code = 1040) 0.12 K/UL ABSOLUTE BASOPHILS (test code = 1069) 0.05 K/UL ABS IMMATURE GRANULOCYTES (test code = 1020) 0.04 K/UL ABS NUCLEATED RBCS (test code = 46656) 0.00 K/UL BLOOD TYPE AND RH (test code = 3901) O POSITIVE ANTIBODY SCREEN (test code = 3902) NEGATIVE RUBELLA ANTIBODY SCREEN (test code = 4600) 22 IU/ML RUBELLA IgG INTERP (test code = 79324) REACTIVE HEPATITIS B SURF AG (test code = 2739) NON-REACTIVE RPR (test code = 16340) NON-REACTIVE RPR TITER (test code = 3500) NOT INDIC. TITER HIV 1/2 4TH GEN, RFLX CONF (test code = 3514) NON-REACTIVE Roger Ty AustinHEPATITIS C [id number] 00:00:00* Test Item Value Reference Range Interpretation Comme nts HEPATITIS C ANTIBODY (test c ode = 4675) NON-REACTIVE Roger F AustinVARICELLA ZOSTER [id number] 00:00:00* Test Item Value Reference Range Interpretation Comme nts VARICELLA ZOSTER IgG (test c ode = 66244) <10 INDEX Roger StrongDRUG ABUSE SCREEN 10 REFLEX [id number] 00:00:00* Test Item Value Reference Range Interpretation Comme nts AMPHETAMINES (test code = 3201) NEGATIVE BARBITURATES (test code = 3202) NEGATIVE BENZODIAZEPINES (test code = 3203) NEGATIVE CANNABINOIDS (test code = 3204) NEGATIVE COCAINE METABOLITE (test cod e = 3205) NEGATIVE OPIATES (test code = 3209) NEGATIVE OXYCODONE (test code = 84964) NEGATIVE PHENCYCLIDINE (test code = 3210) NEGATIVE METHADONE (test code = 3207) NEGATIVE BUPRENORPHINE (test code = 93060) NEGATIVE SOURCE (test code = 541968) URINE Roger StrongHCG, [id number] 00:00:00* Test Item Value Reference Range Interpretation Comme nts HCG, QUANTITATIVE (test code = 2506) 32468 MIU/ML Roger StrongOBSTETRIC PANEL + [id number] 00:00:00* Test Item Value Reference Range Interpretation Comme nts WBC (test code = 1001) 9.4 K/UL RBC (test code = 1002) 4.12 M/UL HEMOGLOBIN (test code = 1003) 12.2 G/DL HEMATOCRIT (test code = 1004) 36.8 % MCV (test code = 1005) 89.3 fL MCH (test code = 1006) 29.6 PG MCHC (test code = 1007) 33.2 G/DL RDW (test code = 1038) 12.9 % NEUTROPHILS (test code = 1008) 66.8 % LYMPHOCYTES (test code = 1010) 24.8 % MONOCYTES (test code = 1011) 6.2 % EOSINOPHILS (test code = 1012) 1.3 % BASOPHILS (test code = 1013) 0.5 % IMMATURE GRANULOCYTES (test code = 1036) 0.4 % NUCLEATED RBCS (test code = 1065) 0.0 /100WBC'S PLATELET COUNT (test code = 1015) 271 K/UL ABSOLUTE NEUTROPHILS (test code = 1066) 6.29 K/UL ABSOLUTE LYMPHOCYTES (test code = 1067) 2.33 K/UL ABSOLUTE MONOCYTES (test code = 1068) 0.58 K/UL ABSOLUTE EOSINOPHILS (test code = 1040) 0.12 K/UL ABSOLUTE BASOPHILS (test code = 1069) 0.05 K/UL ABS IMMATURE GRANULOCYTES (test code = 1020) 0.04 K/UL ABS NUCLEATED RBCS (test code = 93653) 0.00 K/UL BLOOD TYPE AND RH (test code = 3901) O POSITIVE ANTIBODY SCREEN (test code = 3902) NEGATIVE RUBELLA ANTIBODY SCREEN (test code = 4600) 22 IU/ML RUBELLA IgG INTERP (test code = 29910) REACTIVE HEPATITIS B SURF AG (test code = 2739) NON-REACTIVE RPR (test code = 98259) NON-REACTIVE RPR TITER (test code = 3500) NOT INDIC. TITER HIV 1/2 4TH GEN, RFLX CONF (test code = 3514) NON-REACTIVE Roger tSrongHEPATITIS C [id number] 00:00:00* Test Item Value Reference Range Interpretation Comme nts HEPATITIS C ANTIBODY (test c ode = 4675) NON-REACTIVE Roger StrongVARICELLA ZOSTER [id number] 00:00:00* Test Item Value Reference Range Interpretation Comme nts VARICELLA ZOSTER IgG (test c ode = 32397) <10 INDEX Roger StrongDRUG ABUSE SCREEN 10 REFLEX [id number] 00:00:00* Test Item Value Reference Range Interpretation Comme nts AMPHETAMINES (test code = 3201) NEGATIVE BARBITURATES (test code = 3202) NEGATIVE BENZODIAZEPINES (test code = 3203) NEGATIVE CANNABINOIDS (test code = 3204) NEGATIVE COCAINE METABOLITE (test cod e = 3205) NEGATIVE OPIATES (test code = 3209) NEGATIVE OXYCODONE (test code = 83837) NEGATIVE PHENCYCLIDINE (test code = 3210) NEGATIVE METHADONE (test code = 3207) NEGATIVE BUPRENORPHINE (test code = 08469) NEGATIVE SOURCE (test code = 245662) URINE Roger StrongHCG, [id number] 00:00:00* Test Item Value Reference Range Interpretation Comme shandra HCG, QUANTITATIVE (test code = 2506) 83424 MIU/ML Roger StrongOBSTETRIC PANEL + [id number] 00:00:00* Test Item Value Reference Range Interpretation Comme nts WBC (test code = 1001) 9.4 K/UL RBC (test code = 1002) 4.12 M/UL HEMOGLOBIN (test code = 1003) 12.2 G/DL HEMATOCRIT (test code = 1004) 36.8 % MCV (test code = 1005) 89.3 fL MCH (test code = 1006) 29.6 PG MCHC (test code = 1007) 33.2 G/DL RDW (test code = 1038) 12.9 % NEUTROPHILS (test code = 1008) 66.8 % LYMPHOCYTES (test code = 1010) 24.8 % MONOCYTES (test code = 1011) 6.2 % EOSINOPHILS (test code = 1012) 1.3 % BASOPHILS (test code = 1013) 0.5 % IMMATURE GRANULOCYTES (test code = 1036) 0.4 % NUCLEATED RBCS (test code = 1065) 0.0 /100WBC'S PLATELET COUNT (test code = 1015) 271 K/UL ABSOLUTE NEUTROPHILS (test code = 1066) 6.29 K/UL ABSOLUTE LYMPHOCYTES (test code = 1067) 2.33 K/UL ABSOLUTE MONOCYTES (test code = 1068) 0.58 K/UL ABSOLUTE EOSINOPHILS (test code = 1040) 0.12 K/UL ABSOLUTE BASOPHILS (test code = 1069) 0.05 K/UL ABS IMMATURE GRANULOCYTES (test code = 1020) 0.04 K/UL ABS NUCLEATED RBCS (test code = 22666) 0.00 K/UL BLOOD TYPE AND RH (test code = 3901) O POSITIVE ANTIBODY SCREEN (test code = 3902) NEGATIVE RUBELLA ANTIBODY SCREEN (test code = 4600) 22 IU/ML RUBELLA IgG INTERP (test code = 12854) REACTIVE HEPATITIS B SURF AG (test code = 2739) NON-REACTIVE RPR (test code = 53581) NON-REACTIVE RPR TITER (test code = 3500) NOT INDIC. TITER HIV 1/2 4TH GEN, RFLX CONF (test code = 3514) NON-REACTIVE Roger StrongHEPATITIS C [id number] 00:00:00* Test Item Value Reference Range Interpretation Comme nts HEPATITIS C ANTIBODY (test c ode = 4675) NON-REACTIVE Roger StrongVARICELLA ZOSTER [id number] 00:00:00* Test Item Value Reference Range Interpretation Comme nts VARICELLA ZOSTER IgG (test c ode = 24177) <10 INDEX Roger StrongDRUG ABUSE SCREEN 10 REFLEX [id number] 00:00:00* Test Item Value Reference Range Interpretation Comme nts AMPHETAMINES (test code = 3201) NEGATIVE BARBITURATES (test code = 3202) NEGATIVE BENZODIAZEPINES (test code = 3203) NEGATIVE CANNABINOIDS (test code = 3204) NEGATIVE COCAINE METABOLITE (test cod e = 3205) NEGATIVE OPIATES (test code = 3209) NEGATIVE OXYCODONE (test code = 31178) NEGATIVE PHENCYCLIDINE (test code = 3210) NEGATIVE METHADONE (test code = 3207) NEGATIVE BUPRENORPHINE (test code = 10693) NEGATIVE SOURCE (test code = 575859) URINE Roger StrongHCG, [id number] 00:00:00* Test Item Value Reference Range Interpretation Comme nts HCG, QUANTITATIVE (test code = 2506) 12072 MIU/ML Roger StrongOBSTETRIC PANEL + [id number] 00:00:00* Test Item Value Reference Range Interpretation Comme nts WBC (test code = 1001) 9.4 K/UL RBC (test code = 1002) 4.12 M/UL HEMOGLOBIN (test code = 1003) 12.2 G/DL HEMATOCRIT (test code = 1004) 36.8 % MCV (test code = 1005) 89.3 fL MCH (test code = 1006) 29.6 PG MCHC (test code = 1007) 33.2 G/DL RDW (test code = 1038) 12.9 % NEUTROPHILS (test code = 1008) 66.8 % LYMPHOCYTES (test code = 1010) 24.8 % MONOCYTES (test code = 1011) 6.2 % EOSINOPHILS (test code = 1012) 1.3 % BASOPHILS (test code = 1013) 0.5 % IMMATURE GRANULOCYTES (test code = 1036) 0.4 % NUCLEATED RBCS (test code = 1065) 0.0 /100WBC'S PLATELET COUNT (test code = 1015) 271 K/UL ABSOLUTE NEUTROPHILS (test code = 1066) 6.29 K/UL ABSOLUTE LYMPHOCYTES (test code = 1067) 2.33 K/UL ABSOLUTE MONOCYTES (test code = 1068) 0.58 K/UL ABSOLUTE EOSINOPHILS (test code = 1040) 0.12 K/UL ABSOLUTE BASOPHILS (test code = 1069) 0.05 K/UL ABS IMMATURE GRANULOCYTES (test code = 1020) 0.04 K/UL ABS NUCLEATED RBCS (test code = 40451) 0.00 K/UL BLOOD TYPE AND RH (test code = 3901) O POSITIVE ANTIBODY SCREEN (test code = 3902) NEGATIVE RUBELLA ANTIBODY SCREEN (test code = 4600) 22 IU/ML RUBELLA IgG INTERP (test code = 33328) REACTIVE HEPATITIS B SURF AG (test code = 2739) NON-REACTIVE RPR (test code = 39735) NON-REACTIVE RPR TITER (test code = 3500) NOT INDIC. TITER HIV 1/2 4TH GEN, RFLX CONF (test code = 3514) NON-REACTIVE Roger StrongHEPATITIS C [id number] 00:00:00* Test Item Value Reference Range Interpretation Comme nts HEPATITIS C ANTIBODY (test c ode = 4675) NON-REACTIVE Roger StrongVARICELLA ZOSTER [id number] 00:00:00* Test Item Value Reference Range Interpretation Comme nts VARICELLA ZOSTER IgG (test c ode = 39451) <10 INDEX Roger StrongDRUG ABUSE SCREEN 10 REFLEX [id number] 00:00:00* Test Item Value Reference Range Interpretation Comme nts AMPHETAMINES (test code = 3201) NEGATIVE BARBITURATES (test code = 3202) NEGATIVE BENZODIAZEPINES (test code = 3203) NEGATIVE CANNABINOIDS (test code = 3204) NEGATIVE COCAINE METABOLITE (test cod e = 3205) NEGATIVE OPIATES (test code = 3209) NEGATIVE OXYCODONE (test code = 92297) NEGATIVE PHENCYCLIDINE (test code = 3210) NEGATIVE METHADONE (test code = 3207) NEGATIVE BUPRENORPHINE (test code = 21408) NEGATIVE SOURCE (test code = 122286) URINE Roger StrongHCG, [id number] 00:00:00* Test Item Value Reference Range Interpretation Comme nts HCG, QUANTITATIVE (test code = 2506) 38164 MIU/ML Roger StrongOBSTETRIC PANEL + [id number] 00:00:00* Test Item Value Reference Range Interpretation Comme nts WBC (test code = 1001) 9.4 K/UL RBC (test code = 1002) 4.12 M/UL HEMOGLOBIN (test code = 1003) 12.2 G/DL HEMATOCRIT (test code = 1004) 36.8 % MCV (test code = 1005) 89.3 fL MCH (test code = 1006) 29.6 PG MCHC (test code = 1007) 33.2 G/DL RDW (test code = 1038) 12.9 % NEUTROPHILS (test code = 1008) 66.8 % LYMPHOCYTES (test code = 1010) 24.8 % MONOCYTES (test code = 1011) 6.2 % EOSINOPHILS (test code = 1012) 1.3 % BASOPHILS (test code = 1013) 0.5 % IMMATURE GRANULOCYTES (test code = 1036) 0.4 % NUCLEATED RBCS (test code = 1065) 0.0 /100WBC'S PLATELET COUNT (test code = 1015) 271 K/UL ABSOLUTE NEUTROPHILS (test code = 1066) 6.29 K/UL ABSOLUTE LYMPHOCYTES (test code = 1067) 2.33 K/UL ABSOLUTE MONOCYTES (test code = 1068) 0.58 K/UL ABSOLUTE EOSINOPHILS (test code = 1040) 0.12 K/UL ABSOLUTE BASOPHILS (test code = 1069) 0.05 K/UL ABS IMMATURE GRANULOCYTES (test code = 1020) 0.04 K/UL ABS NUCLEATED RBCS (test code = 21029) 0.00 K/UL BLOOD TYPE AND RH (test code = 3901) O POSITIVE ANTIBODY SCREEN (test code = 3902) NEGATIVE RUBELLA ANTIBODY SCREEN (test code = 4600) 22 IU/ML RUBELLA IgG INTERP (test code = 70376) REACTIVE HEPATITIS B SURF AG (test code = 2739) NON-REACTIVE RPR (test code = 87804) NON-REACTIVE RPR TITER (test code = 3500) NOT INDIC. TITER HIV 1/2 4TH GEN, RFLX CONF (test code = 3514) NON-REACTIVE Roger StrongHEPATITIS C [id number] 00:00:00* Test Item Value Reference Range Interpretation Comme nts HEPATITIS C ANTIBODY (test c ode = 4675) NON-REACTIVE Roger StrongVARICELLA ZOSTER [id number] 00:00:00* Test Item Value Reference Range Interpretation Comme nts VARICELLA ZOSTER IgG (test c ode = 02887) <10 INDEX Roger StrongDRUG ABUSE SCREEN 10 REFLEX [id number] 00:00:00* Test Item Value Reference Range Interpretation Comme nts AMPHETAMINES (test code = 3201) NEGATIVE BARBITURATES (test code = 3202) NEGATIVE BENZODIAZEPINES (test code = 3203) NEGATIVE CANNABINOIDS (test code = 3204) NEGATIVE COCAINE METABOLITE (test cod e = 3205) NEGATIVE OPIATES (test code = 3209) NEGATIVE OXYCODONE (test code = 43967) NEGATIVE PHENCYCLIDINE (test code = 3210) NEGATIVE METHADONE (test code = 3207) NEGATIVE BUPRENORPHINE (test code = 40907) NEGATIVE SOURCE (test code = 445107) URINE Roger StrongHCG, [id number] 00:00:00* Test Item Value Reference Range Interpretation Comme nts HCG, QUANTITATIVE (test code = 2506) 94005 MIU/ML Roger StrongOBSTETRIC PANEL + [id number] 00:00:00* Test Item Value Reference Range Interpretation Comme nts WBC (test code = 1001) 9.4 K/UL RBC (test code = 1002) 4.12 M/UL HEMOGLOBIN (test code = 1003) 12.2 G/DL HEMATOCRIT (test code = 1004) 36.8 % MCV (test code = 1005) 89.3 fL MCH (test code = 1006) 29.6 PG MCHC (test code = 1007) 33.2 G/DL RDW (test code = 1038) 12.9 % NEUTROPHILS (test code = 1008) 66.8 % LYMPHOCYTES (test code = 1010) 24.8 % MONOCYTES (test code = 1011) 6.2 % EOSINOPHILS (test code = 1012) 1.3 % BASOPHILS (test code = 1013) 0.5 % IMMATURE GRANULOCYTES (test code = 1036) 0.4 % NUCLEATED RBCS (test code = 1065) 0.0 /100WBC'S PLATELET COUNT (test code = 1015) 271 K/UL ABSOLUTE NEUTROPHILS (test code = 1066) 6.29 K/UL ABSOLUTE LYMPHOCYTES (test code = 1067) 2.33 K/UL ABSOLUTE MONOCYTES (test code = 1068) 0.58 K/UL ABSOLUTE EOSINOPHILS (test code = 1040) 0.12 K/UL ABSOLUTE BASOPHILS (test code = 1069) 0.05 K/UL ABS IMMATURE GRANULOCYTES (test code = 1020) 0.04 K/UL ABS NUCLEATED RBCS (test code = 67884) 0.00 K/UL BLOOD TYPE AND RH (test code = 3901) O POSITIVE ANTIBODY SCREEN (test code = 3902) NEGATIVE RUBELLA ANTIBODY SCREEN (test code = 4600) 22 IU/ML RUBELLA IgG INTERP (test code = 26661) REACTIVE HEPATITIS B SURF AG (test code = 2739) NON-REACTIVE RPR (test code = 58916) NON-REACTIVE RPR TITER (test code = 3500) NOT INDIC. TITER HIV 1/2 4TH GEN, RFLX CONF (test code = 3514) NON-REACTIVE Roger StrongHEPATITIS C [id number] 00:00:00* Test Item Value Reference Range Interpretation Comme shandra HEPATITIS C ANTIBODY (test c ode = 4675) NON-REACTIVE Roger StrongVARICELLA ZOSTER [id number] 00:00:00* Test Item Value Reference Range Interpretation Comme shandra VARICELLA ZOSTER IgG (test c ode = 09115) <10 INDEX Roger StrongDRUG ABUSE SCREEN 10 REFLEX [id number] 00:00:00* Test Item Value Reference Range Interpretation Comme nts AMPHETAMINES (test code = 3201) NEGATIVE BARBITURATES (test code = 3202) NEGATIVE BENZODIAZEPINES (test code = 3203) NEGATIVE CANNABINOIDS (test code = 3204) NEGATIVE COCAINE METABOLITE (test cod e = 3205) NEGATIVE OPIATES (test code = 3209) NEGATIVE OXYCODONE (test code = 63944) NEGATIVE PHENCYCLIDINE (test code = 3210) NEGATIVE METHADONE (test code = 3207) NEGATIVE BUPRENORPHINE (test code = 73672) NEGATIVE SOURCE (test code = 544377) URINE Roger StrongHCG, [id number] 00:00:00* Test Item Value Reference Range Interpretation Comme shandra HCG, QUANTITATIVE (test code = 2506) 98622 MIU/ML Roger StrongOBSTETRIC PANEL + [id number] 00:00:00* Test Item Value Reference Range Interpretation Comme shandra WBC (test code = 1001) 9.4 K/UL RBC (test code = 1002) 4.12 M/UL HEMOGLOBIN (test code = 1003) 12.2 G/DL HEMATOCRIT (test code = 1004) 36.8 % MCV (test code = 1005) 89.3 fL MCH (test code = 1006) 29.6 PG MCHC (test code = 1007) 33.2 G/DL RDW (test code = 1038) 12.9 % NEUTROPHILS (test code = 1008) 66.8 % LYMPHOCYTES (test code = 1010) 24.8 % MONOCYTES (test code = 1011) 6.2 % EOSINOPHILS (test code = 1012) 1.3 % BASOPHILS (test code = 1013) 0.5 % IMMATURE GRANULOCYTES (test code = 1036) 0.4 % NUCLEATED RBCS (test code = 1065) 0.0 /100WBC'S PLATELET COUNT (test code = 1015) 271 K/UL ABSOLUTE NEUTROPHILS (test code = 1066) 6.29 K/UL ABSOLUTE LYMPHOCYTES (test code = 1067) 2.33 K/UL ABSOLUTE MONOCYTES (test code = 1068) 0.58 K/UL ABSOLUTE EOSINOPHILS (test code = 1040) 0.12 K/UL ABSOLUTE BASOPHILS (test code = 1069) 0.05 K/UL ABS IMMATURE GRANULOCYTES (test code = 1020) 0.04 K/UL ABS NUCLEATED RBCS (test code = 84752) 0.00 K/UL BLOOD TYPE AND RH (test code = 3901) O POSITIVE ANTIBODY SCREEN (test code = 3902) NEGATIVE RUBELLA ANTIBODY SCREEN (test code = 4600) 22 IU/ML RUBELLA IgG INTERP (test code = 56913) REACTIVE HEPATITIS B SURF AG (test code = 2739) NON-REACTIVE RPR (test code = 26940) NON-REACTIVE RPR TITER (test code = 3500) NOT INDIC. TITER HIV 1/2 4TH GEN, RFLX CONF (test code = 3514) NON-REACTIVE Roger Ty AustinPAP TEST, THINPREP, IMAGED REFLEX HPV HIGH RISK IF ASC/LG 2024-03-17 13:08:32* Test Item Value Reference Range Interpretation Comme nts SOURCE: (test code = 8001) Unspecified SLIDES: (test code = 8011) 1 LMP: (test code = 8021) NOT GIVEN SPECIMEN ADEQUACY: (test code = 77814) (NOTE) Satisfactory for evaluation. Endocervical cells/transformation zone component present. INTERPRETATION: (test code = 69519) NILM/NO EPITH. ABNORMALITY;SEE BELOW -- ---- NEGATIVE FOR INTRAEPITHELIAL LESION OR MALIGNANCY (NILM) ------- CYTOTECHNOLOGIS T: (test code = 8101) FARRUKH Olivares(ASCP)IA C LOCATION: (test code = 30709) (NOTE) Specimens proces sed and interpreted at [facility], [address] [place] [address], , CLIA: [id number] CPT: (test code = 8140) (NOTE) 95089 UNLESS OTH ERWISE INDICATED, COMPUTER AIDED AND PREPRESS TECHNICIAN SCREENING PERFORMED. The Pap test is a screening test with an inherent, but low probability of error. Your patient should be reminded to consult you immediately if she experiences any suspicious signs or symptoms, regardless of her Pap test result. An alternate report format containing images or consolidated prior Pap history is available as applicable. HPV HIGH RISK IF ASC/LSIL, THINPREP (test code = 43516) CRITERIA NOT MET CT/NG, NAAT, [id number] 13:01:31* Test Item Value Reference Range Interpretation Comme nts CHLAMYDIA, NAAT, THINPREP (test code = 25883) NEGATIVE NEGATIVE A negative resul t does not exclude low level infection, specimensampling error, or collection error. Testing is performed with the [employer] 6800/8800 systems usingreal-time Polymerase Chain Reaction (PCR) method. GONORRHEA, NAAT, THINPREP (test code = 14583) NEGATIVE NEGATIVE A negative resul t does not exclude low level infection, specimensampling error, or collection error. Testing is performed with the [employer] 6800/8800 systems usingreal-time Polymerase Chain Reaction (PCR) method. UNLESS OTHERWISE INDICATED, ALL TESTING PERFORMED AT [facility] [address] [place] [id number] TYPEWRITER TESTER: JONATHAN TREJO M.D. CLIA NUMBER [id number] [facility] [place]. [id number] CT/NG, NAAT, [id number] 00:00:00* Test Item Value Reference Range Interpretation Comme nts CHLAMYDIA, NAAT, THINPREP (t est code = 55411) NEGATIVE GONORRHEA, NAAT, THINPREP (t est code = 45838) NEGATIVE PDFE (test code = PDFReport) PDF Roger Ty AustinPAP TEST, THINPREP, IMAGED REFLEX HPV HIGH RISK IF ASC/LG 2024-03-17 00:00:00* Test Item Value Reference Range Interpretation Comme nts SOURCE: (test code = 8001) Unspecified SLIDES: (test code = 8011) 1 LMP: (test code = 8021) NOT GIVEN SPECIMEN ADEQUACY: (test code = 30439) (NOTE) INTERPRETATION: (test code = 87337) NILM/NO EPITH. ABNORMALITY;SEE BELOW PREPRESS TECHNICIAN: (test code = 8101) [place], [place](ASCP)IAC LOCATION: (test code = 54919) (NOTE) CPT: (test code = 8140) (NOTE) HPV HIGH RISK IF ASC/LSIL, THINPREP (test code = 71442) CRITERIA NOT MET Roger StrongCT/NG, NAAT, [id number] 00:00:00* Test Item Value Reference Range Interpretation Comme nts CHLAMYDIA, NAAT, THINPREP (t est code = 32382) NEGATIVE GONORRHEA, NAAT, THINPREP (t est code = 13449) NEGATIVE PDFE (test code = PDFReport) PDF Roger Ty AustinPAP TEST, THINPREP, IMAGED REFLEX HPV HIGH RISK IF ASC/LG 2024-03-17 00:00:00* Test Item Value Reference Range Interpretation Comme nts SOURCE: (test code = 8001) Unspecified SLIDES: (test code = 8011) 1 LMP: (test code = 8021) NOT GIVEN SPECIMEN ADEQUACY: (test code = 25373) (NOTE) INTERPRETATION: (test code = 85976) NILM/NO EPITH. ABNORMALITY;SEE BELOW PREPRESS TECHNICIAN: (test code = 8101) [place], [place](ASCP)IAC LOCATION: (test code = 35607) (NOTE) CPT: (test code = 8140) (NOTE) HPV HIGH RISK IF ASC/LSIL, THINPREP (test code = 88059) CRITERIA NOT MET Roger Karson AustinCT/NG, NAAT, [id number] 00:00:00* Test Item Value Reference Range Interpretation Comme nts CHLAMYDIA, NAAT, THINPREP (t est code = 86608) NEGATIVE GONORRHEA, NAAT, THINPREP (t est code = 96329) NEGATIVE PDFE (test code = PDFReport) PDF Roger Karson AustinPAP TEST, THINPREP, IMAGED REFLEX HPV HIGH RISK IF ASC/LG 2024-03-17 00:00:00* Test Item Value Reference Range Interpretation Comme nts SOURCE: (test code = 8001) Unspecified SLIDES: (test code = 8011) 1 LMP: (test code = 8021) NOT GIVEN SPECIMEN ADEQUACY: (test code = 25271) (NOTE) INTERPRETATION: (test code = 07100) NILM/NO EPITH. ABNORMALITY;SEE BELOW PREPRESS TECHNICIAN: (test code = 8101) [place], [place](ASCP)IAC LOCATION: (test code = 02189) (NOTE) CPT: (test code = 8140) (NOTE) HPV HIGH RISK IF ASC/LSIL, THINPREP (test code = 12474) CRITERIA NOT MET Roger Ty AustinCT/NG, NAAT, [id number] 00:00:00* Test Item Value Reference Range Interpretation Comme nts CHLAMYDIA, NAAT, THINPREP (t est code = 45092) NEGATIVE GONORRHEA, NAAT, THINPREP (t est code = 25800) NEGATIVE PDFE (test code = PDFReport) PDF Roger F AustinPAP TEST, THINPREP, IMAGED REFLEX HPV HIGH RISK IF ASC/LG 2024-03-17 00:00:00* Test Item Value Reference Range Interpretation Comme nts SOURCE: (test code = 8001) Unspecified SLIDES: (test code = 8011) 1 LMP: (test code = 8021) NOT GIVEN SPECIMEN ADEQUACY: (test code = 72353) (NOTE) INTERPRETATION: (test code = 30543) NILM/NO EPITH. ABNORMALITY;SEE BELOW PREPRESS TECHNICIAN: (test code = 8101) [place], [place](ASCP)IAC LOCATION: (test code = 05565) (NOTE) CPT: (test code = 8140) (NOTE) HPV HIGH RISK IF ASC/LSIL, THINPREP (test code = 99289) CRITERIA NOT MET Roger Karson AustinCT/NG, NAAT, [id number] 00:00:00* Test Item Value Reference Range Interpretation Comme nts CHLAMYDIA, NAAT, THINPREP (t est code = 26621) NEGATIVE GONORRHEA, NAAT, THINPREP (t est code = 62509) NEGATIVE PDFE (test code = PDFReport) PDF Roger F AustinPAP TEST, THINPREP, IMAGED REFLEX HPV HIGH RISK IF ASC/LG 2024-03-17 00:00:00* Test Item Value Reference Range Interpretation Comme nts SOURCE: (test code = 8001) Unspecified SLIDES: (test code = 8011) 1 LMP: (test code = 8021) NOT GIVEN SPECIMEN ADEQUACY: (test code = 60892) (NOTE) INTERPRETATION: (test code = 00778) NILM/NO EPITH. ABNORMALITY;SEE BELOW PREPRESS TECHNICIAN: (test code = 8101) [place](ASCP)[facility] LOCATION: (test code = 89855) (NOTE) CPT: (test code = 8140) (NOTE) HPV HIGH RISK IF ASC/LSIL, THINPREP (test code = 64077) CRITERIA NOT MET Roger Ty AustinCT/NG, NAAT, [id number] 00:00:00* Test Item Value Reference Range Interpretation Comme nts CHLAMYDIA, NAAT, THINPREP (t est code = 23983) NEGATIVE GONORRHEA, NAAT, THINPREP (t est code = 11536) NEGATIVE PDFE (test code = PDFReport) PDF Roger F AustinPAP TEST, THINPREP, IMAGED REFLEX HPV HIGH RISK IF ASC/LG 2024-03-17 00:00:00* Test Item Value Reference Range Interpretation Comme nts SOURCE: (test code = 8001) Unspecified SLIDES: (test code = 8011) 1 LMP: (test code = 8021) NOT GIVEN SPECIMEN ADEQUACY: (test code = 59768) (NOTE) INTERPRETATION: (test code = 96969) NILM/NO EPITH. ABNORMALITY;SEE BELOW PREPRESS TECHNICIAN: (test code = 8101) [place](ASCP)IAC LOCATION: (test code = 82408) (NOTE) CPT: (test code = 8140) (NOTE) HPV HIGH RISK IF ASC/LSIL, THINPREP (test code = 49999) CRITERIA NOT MET Roger Ty AustinCT/NG, NAAT, [id number] 00:00:00* Test Item Value Reference Range Interpretation Comme nts CHLAMYDIA, NAAT, THINPREP (t est code = 29734) NEGATIVE GONORRHEA, NAAT, THINPREP (t est code = 98190) NEGATIVE PDFE (test code = PDFReport) PDF Roger F AustinPAP TEST, THINPREP, IMAGED REFLEX HPV HIGH RISK IF ASC/LG 2024-03-17 00:00:00* Test Item Value Reference Range Interpretation Comme nts SOURCE: (test code = 8001) Unspecified SLIDES: (test code = 8011) 1 LMP: (test code = 8021) NOT GIVEN SPECIMEN ADEQUACY: (test code = 23181) (NOTE) INTERPRETATION: (test code = 64612) NILM/NO EPITH. ABNORMALITY;SEE BELOW PREPRESS TECHNICIAN: (test code = 8101) [place](ASCP)IAC LOCATION: (test code = 52608) (NOTE) CPT: (test code = 8140) (NOTE) HPV HIGH RISK IF ASC/LSIL, THINPREP (test code = 12193) CRITERIA NOT MET Roger Ty AustinCT/NG, NAAT, [id number] 00:00:00* Test Item Value Reference Range Interpretation Comme nts CHLAMYDIA, NAAT, THINPREP (t est code = 72335) NEGATIVE GONORRHEA, NAAT, THINPREP (t est code = 81694) NEGATIVE PDFE (test code = PDFReport) PDF Roger F AustinPAP TEST, THINPREP, IMAGED REFLEX HPV HIGH RISK IF ASC/LG 2024-03-17 00:00:00* Test Item Value Reference Range Interpretation Comme nts SOURCE: (test code = 8001) Unspecified SLIDES: (test code = 8011) 1 LMP: (test code = 8021) NOT GIVEN SPECIMEN ADEQUACY: (test code = 29536) (NOTE) INTERPRETATION: (test code = 02932) NILM/NO EPITH. ABNORMALITY;SEE BELOW PREPRESS TECHNICIAN: (test code = 8101) FARRUKH Olivares(ASCP)IAC LOCATION: (test code = 24287) (NOTE) CPT: (test code = 8140) (NOTE) HPV HIGH RISK IF ASC/LSIL, THINPREP (test code = 49225) CRITERIA NOT MET Roger Strong Notes Date/Time Note Provider Source 2024-09-15 08:07:00 [facility] ([facility] OB Disch REPORT#:[id number] REPORT STATUS: Signed REPORT INITIALIZATION DATE:09/15/24 TIME: 806 PATIENT: CHRISTINA EASTMAN UNIT #: [id number] ROOM/BED: [place] [address] : 00 AGE: 24 SEX: F ATTEND: Pavel Edmond MD ADM AUTHOR: Pavel Edmond MD REPT SERVICE DT/TIME: 09/15/24 0807 * ALL edits or amendments must be made on the electronic/computer document * Subjective Subjective Patient reports: Patient reports: Yes: complaints, normal lochia, pain management effective, tolerating po well , voiding well, voiding without pain, tolerating ambulation, flatus. No: bowel movement, nausea, vomiting, excessive bleeding, abdominal pain, perineal pain, difficulty nursing, headache. Objective Physical Exam Neuro: Exam: alert, oriented x3, normal speech, normal gait, CNII-XII grossly intact Abdomen: post gravid, soft, no abnormal tenderness, no guarding, no rebound tenderness Incision site: well approximated edges Fundus: firm, at the umbilicus Lochia: normal Discharge Summary General Hospital course: primary LTCS in labor Discharge diagnosis: full-term uncomp delivery Discharge Instructions Additional discharge routines: None at 0814 RPT #:[id number] END OF REPORT [facility] 2024-09-14 08:42:00 [id number] [place] [address] PATIENT NAME: CHRISTINA EASTMAN ADMIT DATE: 09/14/24 ACCOUNT NO: [id number] ROOM NO: [facility] AGE: 24 REPORT TYPE: OPERATIVE REPORT SEX: F ADMITTING PHYSICIAN:Pavel Edmond MD ATTENDING PHYSICIAN:Pavel Edmond MD OPERATION DATE: 09/14/2024 PREOPERATIVE DIAGNOSES: 1. Term gestation. 2. Breech presentation. POSTOPERATIVE DIAGNOSES: 1. Term gestation. 2. Breech presentation. PROCEDURE: Primary low transverse for breech presentation. ATTENDING: Pavel Edmond M.D. SURGEON: Pavel Edmond M.D. PROJECT BUILDER: Maurisio. ANESTHESIA: Spinal. QBL: [id number]. CLINICAL NOTE: The patient is a 24-year-old primigravida who was admitted at 39 weeks' gestation for primary low transverse due to footling breech presentation. On admission, she had no complaint. Her care with [TIME: 00:54] has been unremarkable. PROCEDURE IN DETAIL: After adequate preparation and appropriate consent was obtained, she was taken to the operating room. While in the operating room in a sitting position, she had an uneventful spinal anesthesia. She was then repositioned in a dorsal supine position, prepped and draped in the usual sterile manner. A Pfannenstiel skin incision was made with a knife and was carried down to the fascia. The fascia was then nicked and was extended on both sides. The fascia was also mobilized cephalad and caudad. The underlying rectus abdominal muscle was in the midline. Peritoneum was entered by blunt dissection. Next, a self-retaining retractor was then put in place for adequate exposure. A bladder flap was created using the Metzenbaum scissors. Uterine incision was made in a low transverse fashion. Upon entering the uterus, noted was an infant in a footling breech presentation. Using the breech technique, the baby was successfully delivered. Baby also had a loose nuchal cord x1. The cord was then clamped and cut and the infant was subsequently handed over to the nursing team in attendance for the delivery. Delivered was a female infant. Next, the placenta was removed manually and intact. The uterine PATIENT NAME: CHRISTINA EASTMAN incision was then closed using 0 Monocryl in a running interlocking fashion. Second suture line was placed in imbricating fashion. Next, the self-retaining retractor was then removed. The muscles were reapproximated in 3 places. Cytotec was inserted into her uterine cavity to minimize the hemorrhage. Also, she did have Interceed placed along the length of the uterine incision to minimize adhesions. The fascia was then closed using a 0 Vicryl in a running fashion. Skin was closed in a subcuticular fashion. At the completion of the operation, all sponges and instruments were accounted for. The patient was taken to recovery room in stable condition. Dictated By: Pavel Edmond MD Date Dictated: 09/14/2024 08:42:55 Date Transcribed: 09/14/2024 09:14:02 MILIND/NORMA/TERRELL Receipt ID: [id number] Authenticated by Pavel Edmond MD On 09/17/2024 04:43:21 PM at 0443 PATIENT NAME: CHRISTINA EASTMAN [facility] 2024-09-14 07:35:00 [facility] OB Admission / H P REPORT#:[id number] REPORT STATUS: Signed REPORT INITIALIZATION DATE:09/14/24 TIME: 734 PATIENT: CHRISTINA EASTMAN UNIT #: [id number] ROOM/BED: [place] [address] : 00 AGE: 24 SEX: F ATTEND: Pavel Edmond MD ADM AUTHOR: Pavel Edmond MD REPT SERVICE DT/TIME: 09/14/24 0735 * ALL edits or amendments must be made on the electronic/computer document * OB History HPI: 24 , 39 WKS IUP ADMITTED C/S DUE BREECH PRESENTATION. NO COMPLAINT ON ADMISSION. PNC WITH CHN WAS UNREMARKABLE Past History Allergies: Coded Allergies: No Known Allergies (09/13/24) Objective Physical Exam Neuro: Exam: alert, oriented x3, normal speech, normal gait, CNII-XII grossly intact Abdomen: gravid, soft, no abnormal tenderness, no guarding, no rebound tenderness, normoactive bowel sounds Uterine activity: Monitor: toco Baby A: Baby A baseline: 135 bpm Baby A variability: marked > 25 bpm Baby A accelerations: 15 X 15 Baby A decelerations: none Diagnosis, Assessment Plan Diagnosis, Assessment Plan Assessment/Impression: TREM GESTATION ,BREECH PRESENTATION Plan: scheduled Reason-sched C section: breech presentation at 0742 [facility] #:[id number] END OF REPORT [facility]2024-11-15 00:00:00 [facility]2024-11-01 00:00:00 [facility]2024-10-17 00:00:00 [facility]2024-08-26 00:00:00 [facility]2024-07-29 00:00:00 [facility]2024-06-25 00:00:00 [facility]2024-06-20 00:00:00 [facility]
[2025-02-12] MEDS ORDERED: NA CHLORIDE 0.9% 1,000 ML ONE (09:12)
[2025-02-12] MEDS ORDERED: DIPHENHYDRAMINE 50 MG/ML VIAL ONE (09:12)
[2025-02-12] MEDS ORDERED: METOCLOPRAMIDE 10 MG/2mL INJ ONE (09:12)
[2025-02-12] MEDS ORDERED: KETOROLAC 30 MG/ML INJ ONE (09:12)
[2025-02-12 09:34] LABS: Absolute Basophils 0.1 K/uL (0-0.5); Absolute Eosinophils 0.1 K/uL (0-0.5); Absolute Lymphocytes (CBC) 2.4 K/uL (0.7-4.9); Absolute Monocytes 0.5 K/uL (0.1-1.3); Absolute Neutrophil 4.8 K/uL (1.8-8.0); Basophils % 0.7 % (0-1.3); Eosinophils % 1.7 % (0-4.4); Hematocrit 36.6 % (36.0-45.0); Hemoglobin 12.3 g/dL (12.0-15.0); Lymphocytes % 30.2 % (15.3-44.8); MCH 26.1 pg (27.0-35.0); MCHC 33.6 g/dL (32.0-36.0); MCV 77.6 fL (80-100); MPV 9.7 fL (7.6-11.3); Monocytes % 6.2 % (3.3-12.3); Neutrophils % 61.2 % (41.7-73.7); Nucleated Red Blood Cells % 0.1 % (0-0); Platelets 275 thou/uL (152-406); RBC Red Blood Cell Count 4.72 M/uL (3.86-4.86); Red Cell Distribution Width 15.3 % (12.1-15.2)
[2025-02-12 09:52] LABS: Albumin 3.5 g/dL (3.4-5.0); Albumin/Globulin Ratio 0.8 (1.1-1.8); Anion Gap 9.7 mEq/L (5.0-15.0); Bilirubin Total 0.5 mg/dL (0.2-1.0); Globulin 4.2 g/dL (2.3-3.5); Potassium 3.7 mEq/L (3.5-5.1); Protein, Total 7.7 g/dL (6.4-8.2)
[2025-02-12 10:42] LABS: Sqamous Epithelial <5 /HPF (None Seen); Transitional Epithelial <5 /HPF (None Seen); Urine Bacteria <20 /HPF (<20); Urine Bilirubin NEGATIVE (Negative); Urine Blood Negative (Negative); Urine Clarity Turbid (Clear); Urine Color Colorless (Yellow); Urine Culture Reflex Order NOT NEEDED; Urine Glucose NEGATIVE (Negative); Urine Ketones NEGATIVE (Negative); Urine Microscopic Reflex YN ORDER UMIC; Urine Nitrite NEGATIVE (Negative); Urine Protein NEGATIVE (Negative); Urine RBC <5 /HPF (None Seen); Urine Urobilinogen Normal (Normal); Urine WBC <5 /HPF (<5); Urine pH 5.5 (5.0-7.0)
--- NOTE | 2025-02-12 10:51 | RAD REPORT ---
EXAMINATION: Head Brain Wo Cont CLINICAL INDICATION: Female, 24 years old.HEADACHE TECHNIQUE: Axial CT images from the skull base to the vertex without intravenous contrast. Coronal an d sagittal reformatted images were created from the data set. One or more of the following dose reduction techniques were used: Automated exposure control, adjustment of the mA and/or kV according to patient size, and/or iterative reconstruction. Unless otherwise specified, incidental findings do not require dedicated imaging follow-up. [id number]. COMPARISON: No prior exam. FINDINGS: INTRACRANIAL: No acute intracranial hemorrhage. No hydrocephalus. No mass effect or midline shift. No significant white matter disease. VASCULATURE: No visualized abnormalities in the arteries or dural venous sinuses. SCALP/SKULL: No calvarial fracture identified. No acute soft tissue abnormality. SINUSES: The visualized paranasal sinuses are mostly clear. No significant mastoid fluid. IMPRESSION: No acute intracranial abnormality.
--- NOTE | 2025-02-12 10:57 | EDPHYS ---
Physician Documentation [facility] Name: Coco Barajas Age: 24 yrs Sex: Female : 2000 Arrival Date: 02/12/2025 Time: 08:38 Bed 17 Private MD: ED Physician David Mckay HPI: 02/12 10:15 This 24 yrs old Female presents to ER via Ambulatory with complaints of alessio Headache, Vomiting. 10:15 The patient complains of pain to the forehead and left amish. 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 - Infectious Disease History:: Denies. - Social history:: Smoking status: Patient denies any tobacco usage or history of. ROS: 10:16 Constitutional: Negative for fever, chills, and weight loss, Eyes: Negative for injury, alessio pain, redness, and discharge, ENT: Negative for injury, pain, and discharge, Neck: Negative for injury, pain, and swelling, Cardiovascular: Negative for chest pain, palpitations, and edema, Respiratory: Negative for shortness of breath, cough, wheezing, and pleuritic chest pain, Abdomen/GI: Negative for abdominal pain, nausea, vomiting, diarrhea, and constipation, Back: Negative for injury and pain, : Negative for injury, bleeding, discharge, and swelling, MS/Extremity: Negative for injury and deformity, Skin: Negative for injury, rash, and discoloration, Psych: Negative for depression, anxiety, suicide ideation, homicidal ideation, and hallucinations, Allergy/Immunology: Negative for hives, rash, and allergies, Endocrine: Negative for neck swelling, polydipsia, polyuria, polyphagia, and marked weight changes, Hematologic/Lymphatic: Negative for swollen nodes, abnormal bleeding, and unusual bruising, 10:16 Neuro: Positive for headache, Exam: 10:16 Constitutional: This is a well developed, well nourished patient who is awake, alert, alsesio and in no acute distress. Head/Face: Normocephalic, atraumatic. Eyes: Pupils equal round and reactive to light, extra-ocular motions intact. Lids and lashes normal. Conjunctiva and sclera are non-icteric and not injected. Cornea within normal limits. Periorbital areas with no swelling, redness, or edema. ENT: Nares patent. No nasal discharge, no septal abnormalities noted. Tympanic membranes are normal and external auditory canals are clear. Oropharynx with no redness, swelling, or masses, exudates, or evidence of obstruction, uvula midline. Mucous membranes moist. Neck: Trachea midline, no thyromegaly or masses palpated, and no cervical lymphadenopathy. Supple, full range of motion without nuchal rigidity, or vertebral point tenderness. No Meningismus. Chest/axilla: Normal chest wall appearance and motion. Nontender with no deformity. No lesions are appreciated. Cardiovascular: Regular rate and rhythm with a normal S1 and S2. No gallops, murmurs, or rubs. Normal PMI, no JVD. No pulse deficits. Respiratory: Lungs have equal breath sounds bilaterally, clear to auscultation and percussion. No rales, rhonchi or wheezes noted. No increased work of breathing, no retractions or nasal flaring. Abdomen/GI: Soft, non-tender, with normal bowel sounds. No distension or tympany. No guarding or rebound. No evidence of tenderness throughout. Back: No spinal tenderness. No costovertebral tenderness. Full range of motion. Skin: Warm, dry with normal turgor. Normal color with no rashes, no lesions, and no evidence of cellulitis. MS/ Extremity: Pulses equal, no cyanosis. Neurovascular intact. Full, normal range of motion., bilateral aka Neuro: Awake and alert, GCS 15, oriented to person, place, time, and situation. Cranial nerves II-XII grossly intact. Motor strength 5/5 in all extremities. Sensory grossly intact. Cerebellar exam normal. Normal gait. Psych: Awake, alert, with orientation to person, place and time. Behavior, mood, and affect are within normal limits. Vital Signs: 09:02 BP 128 / 78; Pulse 80; Resp 16; Temp 97.1; Pulse Ox 99% on R/A; Weight 81.65 kg; Height iw 5 ft. 4 in. ; Pain 8/10; 11:37 BP 118 / 70; Pulse 70; Resp 16; Pulse Ox 100% on R/A; Pain 0/10; mb9 09:02 Body Mass Index 30.90 (81.65 kg, 162.56 cm) iw 09:02 Pain Scale: Adult iw 11:37 Pain Scale: Adult mb9 Bruno Coma Score: 10:17 Eye Response: spontaneous(4). Motor Response: obeys commands(6). Verbal Response: alessio oriented(5). Total: 15. MDM: 08:42 Medical Screening Exam initiated alessio 10:17 Differential diagnosis: cluster headache, herpes zoster, hypertensive headache, alessio hyponatremia, meningitis, migraine, neoplasm, subarachnoid bleed, subdural hematoma, temporal arteritis, tension headache, traumatic injuries, trigeminal neuralgia. Data reviewed: vital signs, nurses notes, lab test result(s), radiologic studies, CT scan. Consideration of Admission/Observation Escalation of care including admission/observation considered. I considered the following discharge prescriptions or medication management in the emergency department Medications were administered in the Emergency Department. See MAR. Independent interpretation of the following test(s) in the Emergency Department CT Scan: My interpretation is ct head. 02/12 08:44 Order name: CBC with Diff; Complete Time: 10:14 [facility] 02/12 08:44 Order name: CMP; Complete Time: 10:14 [facility] 02/12 08:44 Order name: UA Rfx Mendez Cult if indicated; Complete Time: 10:55 [facility] 02/12 10:15 Order name: Test, Serum [facility] 02/12 10:16 Order name: CRP; Complete Time: 10:55 [facility] 02/12 10:15 Order name: CT Head Brain wo Cont; Complete Time: 10:55 [facility] 02/12 09:22 Order name: IV Saline Lock; Complete Time: 09:22 mb9 Administered Medications: 09:18 Drug: metoCLOPramide IVP 10 mg IVP once; over 1 to 2 minutes Route: IVP; Site: right mb9 antecubital; 10:57 Follow up: Response: No adverse reaction mb9 09:20 Drug: NS 0.9% IV 1000 ml IV at 1000 ml once; to be given as a bolus over 60 minutes mb9 Route: IV; Rate: 1000 ml; Site: right antecubital; 10:57 Follow up: Response: No adverse reaction; IV Status: Completed infusion 9 09:22 Drug: Ketorolac IVP 30 mg IVP once Route: IVP; Site: right antecubital; mb9 10:57 Follow up: Response: No adverse reaction mb9 09:23 Drug: diphenhydrAMINE IVP 50 mg IVP once Route: IVP; Site: right antecubital; mb9 10:57 Follow up: Response: No adverse reaction mb9 11:06 Drug: predniSONE PO 60 mg PO once Route: PO; mb9 11:29 Follow up: Response: No adverse reaction mb9 Disposition Summary: 02/12/25 10:56 Discharge Ordered Notes: Location: Home alessio Problem: new alessio Symptoms: have improved alessio Condition: Stable alessio Diagnosis - Headache alessio - Vomiting alessio Followup: alessio - With: Private Physician - When: 2 - 3 days - Reason: Recheck today's complaints, Continuance of care, Re-evaluation by your physician Followup: alessio - With: Shaheed Hanson MD - When: 2 - 3 days - Reason: Recheck today's complaints, Re-evaluation by your physician Discharge Instructions: - Discharge Summary Sheet alessio - General Headache Without Cause alessio - Nausea and Vomiting, Adult alessio - General Headache Without Cause, [id number] alessio - Vomiting, Adult alessio Forms: - Medication Reconciliation Form alessio - Antibiotic Education alessio - Prescription Opioid Use alessio - Patient Portal Instructions [facility] - Leadership Thank You Letter [facility] Prescriptions: - Ibuprofen 600 mg Oral tablet - take 1 tablet ORAL route every 6 hours As needed take with food; 20 tablet; [facility] Refills: 0, Product Selection Permitted - Zofran 4 mg Oral Tablet - take 1 tablet ORAL route every 12 hours As needed; 20 tablet; Refills: 0, [facility] Product Selection Permitted - Prednisone 20 mg Oral Tablet - take 2 tablets ORAL route once daily for 5 days; 10 tablet; Refills: 0, Product [facility] Selection Permitted Signatures: Dispatcher [employer] David Pulliam MD MD cha Williams, Irene, RN RN iw Wilkerson, Mary Beth, RN RN mb9 Corrections: (The following items were deleted from the chart) 08:45 08:45 CBC+H.LAB.BRZ ordered. EDMS EDMS 08:45 08:45 COMPREHENSIVE METABOLIC PANEL+C.LAB.BRZ ordered. EDMS EDMS 08:45 08:45 UA Rfx Mendez Cult if indicated+U.LAB.BRZ ordered. EDMS EDMS 10:15 10:15 TEST, SERUM+SC.LAB.BRZ ordered. EDMS EDMS 10:17 10:17 C-REACTIVE PROTEIN+C.LAB.BRZ ordered. EDMS EDMS 11:22 08:45 Test, Urine+UC.LAB.BRZ ordered. EDMS EDMS
--- NOTE | 2025-02-12 10:57 | ER ---
Nurse's Notes [facility] Name: Coco Barajas Age: 24 yrs Sex: Female : 2000 Arrival Date: 02/12/2025 Time: 08:38 Bed 17 Private MD: Diagnosis: Headache;Vomiting Presentation: 02/12 09:02 Chief complaint: Patient states: left sided headache and neck pain since yesterday iw morning , she took tylenol and it felt better , then it started again at 4 am and he is vomiting. Coronavirus screen: At this time, the client does not indicate any symptoms associated with coronavirus-19. Ebola Screen: No symptoms or risks identified at this time. Initial Sepsis Screen: Does the patient meet any 2 criteria? No. Patient's initial sepsis screen is negative. Does the patient have a suspected source of infection? No. Patient's initial sepsis screen is negative. Risk Assessment: Do you want to hurt yourself or someone else? Patient reports no desire to harm self or others. 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 - Infectious Disease History:: Denies. - Social history:: Smoking status: Patient denies any tobacco usage or history of. Screenin: [facility] ED Fall Risk Assessment (Adult) History of falling in the last 3 months, mb9 including since admission No falls in past 3 months (0 pts) Confusion or Disorientation No (0 pts) Intoxicated or Sedated No (0 pts) Impaired Gait No (0 pts) Mobility Assist Device Used No (0 pt) Altered Elimination No (0 pt) Score/Fall Risk Level 0 - 2 = Low Risk Oriented to surroundings, Maintained a safe environment, Educated pt \T\ family on fall prevention, incl call for assistance when getting out of bed, Assessed \T\ reinforced patient's understanding of fall precautions. Abuse screen: Denies threats or abuse. Nutritional screening: No deficits noted. Tuberculosis screening: No symptoms or risk factors identified. Assessment: 09:23 General: Appears in no apparent distress. Behavior is calm, cooperative. Pain: mb9 Complains of pain in head Pain radiates to neck Pain currently is 8 out of 10 on a pain scale. Quality of pain is described as aching, Pain began suddenly, Is continuous. Neuro: Castro Agitation-Sedation Scale (RASS): 0 - Alert and Calm Level of Consciousness is awake, alert, obeys commands, Oriented to person, place, time, situation, Appropriate for age. Neuro: Reports headache. Cardiovascular: Patient's skin is warm and dry. Respiratory: Airway is patent Respiratory effort is even, unlabored, Respiratory pattern is regular, symmetrical. GI: No signs and/or symptoms were reported involving the gastrointestinal system. : No signs and/or symptoms were reported regarding the genitourinary system. EENT: No signs and/or symptoms were reported regarding the EENT system. Derm: Skin is pink, warm \T\ dry. Musculoskeletal: Range of motion: intact in all extremities. 10:29 Reassessment: Patient and/or family updated on plan of care and expected duration. Pain mb9 level reassessed. Patient is alert, oriented x 3, equal unlabored respirations, skin warm/dry/pink. Patient states feeling better. Patient states symptoms have improved. 11:06 Reassessment: D/C pending CT scan and CT results. mb9 Vital Signs: 09:02 BP 128 / 78; Pulse 80; Resp 16; Temp 97.1; Pulse Ox 99% on R/A; Weight 81.65 kg; Height iw 5 ft. 4 in. ; Pain 8/10; 11:37 BP 118 / 70; Pulse 70; Resp 16; Pulse Ox 100% on R/A; Pain 0/10; mb9 09:02 Body Mass Index 30.90 (81.65 kg, 162.56 cm) iw 09:02 Pain Scale: Adult iw 11:37 Pain Scale: Adult mb9 Bruno Coma Score: 10:17 Eye Response: spontaneous(4). Motor Response: obeys commands(6). Verbal Response: alessio oriented(5). Total: 15. ED Course: 08:41 Patient arrived in ED. im 08:42 David Mckay MD is Attending Physician. alessio 09:04 Triage completed. iw 09:05 Arm band placed on. iw 09:09 Gloria Dick, SERGE is Primary Nurse. mb9 09:22 CMP Sent. mb9 09:22 CBC with Diff Sent. mb9 09:23 Initial lab(s) drawn, by me, sent to lab. Inserted saline lock: 20 gauge in right mb9 antecubital area, using aseptic technique. Blood collected. Flushed with 10 mL NS. 09:24 Bed in low position. Call light in reach. Side rails up X 1. Provided Education on: mb9 press call light if needing anything. Client placed on continuous cardiac and pulse oximetry monitoring. NIBP monitoring applied. 10:41 CT Head Brain wo Cont In Process Unspecified. EDMS 10:56 Shaheed Hanson MD is Referral Physician. [facility] 11:38 No provider procedures requiring assistance completed. IV discontinued, intact, mb9 bleeding controlled, No redness/swelling at site. Pressure dressing applied. Administered Medications: 09:18 Drug: metoCLOPramide IVP 10 mg IVP once; over 1 to 2 minutes Route: IVP; Site: right mb9 antecubital; 10:57 Follow up: Response: No adverse reaction mb9 09:20 Drug: NS 0.9% IV 1000 ml IV at 1000 ml once; to be given as a bolus over 60 minutes mb9 Route: IV; Rate: 1000 ml; Site: right antecubital; 10:57 Follow up: Response: No adverse reaction; IV Status: Completed infusion mb9 09:22 Drug: Ketorolac IVP 30 mg IVP once Route: IVP; Site: right antecubital; mb9 10:57 Follow up: Response: No adverse reaction mb9 09:23 Drug: diphenhydrAMINE IVP 50 mg IVP once Route: IVP; Site: right antecubital; mb9 10:57 Follow up: Response: No adverse reaction mb9 11:06 Drug: predniSONE PO 60 mg PO once Route: PO; mb9 11:29 Follow up: Response: No adverse reaction mb9 Medication: 09:24 VIS not applicable for this client. mb9 Outcome: 10:56 Discharge ordered by . alessio 11:38 Discharged to home ambulatory, mb9 11:38 Condition: stable 11:38 Discharge instructions given to patient, Instructed on discharge instructions, follow up and referral plans. Demonstrated understanding of instructions, follow-up care, medications, Prescriptions given X 3, 11:38 Patient left the ED. mb9 Signatures: Dispatcher [employer] EDDavid iTnoco MD MD cha Williams, Irene, RN RN iw Wilkerson, Mary Beth, RN RN mb9 Caitie Hinkle
[2025-02-12] MEDS ORDERED: predniSONE 20 MG TAB ONE (11:00)
[2025-02-12 12:04] VITALS: TEMP 97.1
[2025-02-12 12:06] VITALS: BP 118/70; O2SAT 100
== END 2025-02-12 11:38 | disposition home or self-care (01) ==
LOC: ER 08:38
DX: R51.9 Headache, unspecified (principal); R11.10 Vomiting, unspecified
CPT/HCPCS: 36415; 70450; 80053; 81001; 84703; 85025; 86140; 96361; 96374; 96375; 99284; J1200; J2765; J7030; J7512